=== PATIENT | female | born 1960 | race Caucasian/White ===

== ENCOUNTER 2018-03-15 14:08 | Outpatient (CLI) | payer BC ==
--- NOTE | 2018-03-16 11:13 | MMO ---
BILATERAL DIGITAL SCREENING MAMMOGRAMS: HISTORY: This 58-year-old female presents for digital screening mammography. COMPARISON: 08/12/08. This patient's mammogram is interpreted with the assistance of computer-aided detection. FINDINGS: Scattered areas of fibroglandular density are noted bilaterally. Small stable circumscribed mass in the outer lower subareolar region of the right breast. Stable typically benign calcifications. IMPRESSION: BI-RADS category 2, benign findings. Continued routine screening. BIRADS 2: Benign Finding(s) Routine annual screening mammography (for women over age 40) POS: [facility]
== END 2018-03-15 14:09 | disposition home or self-care (01) ==
LOC: SCSMAMMO 14:08
PROVIDERS: ATTEND Family Medicine
DX: Z12.31 Encounter for screening mammogram for malignant neoplasm of breast (principal)
CPT/HCPCS: 77067

== ENCOUNTER 2019-05-04 14:22 | Emergency (ER) | payer BC ==
[~2019-05-04 14:22] MED LIST: Iopamidol 370 76% 100 ML VIAL ONE
[2019-05-04 14:55] LABS: #Basophils 0.1 thou/uL (0.0-0.2); #Eosinphils 0.2 thou/uL (0.0-0.7); #Monocytes 0.8 thou/uL (0.11-0.59); #Neutrophils 5.5 thou/uL (1.40-6.50); %Basophils 0.9 % (0.0-1.0); %Eosinophils 2.2 % (0.0-10.0); %Lymphocytes 23.3 % (21.0-51.0); %Monocytes 9.7 % (0.0-10.0); %Neutrophils 63.9 % (42.0-75.0); Hemoglobin 11.8 g/dL (12.0-16.0); Mean Corpuscular HGB CONC 32.5 g/dL (32.0-36.0); Mean Corpuscular Hemoglobin 30.1 pg (27.0-31.0); Mean Corpuscular Volume 92.7 fL (78.0-98.0); Mean Platelet Volume 8.8 fL (7.4-10.4); Platelet Count 235 thou/uL (130-400); RBC Distribution Width 13.2 % (11.5-14.5); White Blood Cell (WBC) Count 8.5 thou/uL (4.8-10.8)
[2019-05-04 15:11] LABS: ALT (SGPT) 27 U/L (8-55); AST (SGOT) 20 U/L (5-34); Albumin 4.4 g/dL (3.4-4.8); Alkaline Phosphatase 83 U/L (40-150); Anion Gap 13 mmol/L (10-20); BUN (Urea Nitrogen) 19 mg/dL (9.8-20.1); Bilirubin, Total 0.3 mg/dL (0.2-1.2); Calc. Creatinine Clearance 0 mL/min (70-130); Calcium 9.6 mg/dL (7.8-10.44); Carbon Dioxide 25 mmol/L (23-31); Chloride 106 mmol/L (98-107); Estimated GFR-MDRD 74; Globulin 3.2 g/dL (2.4-3.5); Glucose 91 mg/dL (80-115); Lipase 15 U/L (8-78); Potassium 3.6 mmol/L (3.5-5.1); Protein, Total 7.6 g/dL (6.0-8.3); Sodium 140 mmol/L (136-145)
--- NOTE | 2019-05-04 15:16 | RAD ---
2 views chest: 05/04/2019 COMPARISON: None HISTORY: Shortness of breath FINDINGS: There is atherosclerotic calcification of the aortic arch. There is no pneumothorax or pleu ral fluid and no focal consolidation or alveolar edema. Heart and mediastinal contours appear grossly unremarkable. Clips in right upper quadrant suggest prior cholecystectomy. IMPRESSION: No acute findings.
[2019-05-04 15:21] LABS: Bilirubin Negative (Negative); Blood, Urine Trace (Negative); Clarity Clear (Clear); Glucose, Urine (Dipstick) Negative (Negative); Leukocyte Negative (Negative); Nitrite Negative (Negative); Protein, Urine (Dipstick) Negative (Neg-Trace); Urobilinogen 0.2 mg/dL (Less than 2)
[2019-05-04 15:27] LABS: Bacteria/HPF None Seen HPF (None Seen); WBC/HPF 0-3 HPF (0-3)
--- NOTE | 2019-05-04 16:43 | CT ---
CTA of the chest and abdomen utilizing an aortic dissection protocol and 3-D reformatted imaging INDICATION: Chest and back pain COMPARISON: None FINDINGS: Aorta: No acute aortic stenosis, occlusion or aneurysmal formation demonstrated. There is mild scatte red vascular calcification involving the aorta. Central pulmonary artery: No central pulmonary embolus demonstrated. Additional thorax findings: There is scattered emphysema. No confluent airspace opacity or pneumothor ax is demonstrated. Additional abdominal findings: The gallbladder is surgically absent. There is fatty infiltration of t he liver. There are scattered diverticula involving the colon. There is mild narrowing involving the proximal right renal artery. The celiac, SMA, left renal artery and ESTUARDO are patent. Osseous structures: No acute osseous abnormality. IMPRESSION: 1. No appreciable aortic stenosis, occlusion or aneurysmal formation demonstrated. 2. Mild narrowing of the proximal right renal artery 3. Other findings as above
== END 2019-05-04 17:19 | disposition left against medical advice (07) ==
LOC: SCSER 14:22
DX: R07.89 Other chest pain (principal); R06.00 Dyspnea, unspecified; M54.9 Dorsalgia, unspecified; R60.0 Localized edema; E03.9 Hypothyroidism, unspecified; E78.5 Hyperlipidemia, unspecified; E78.00 Pure hypercholesterolemia, unspecified; I10 Essential (primary) hypertension
CPT/HCPCS: 71046; 71275; 80053; 81003; 81015; 83690; 83880; 84484; 85025; 93005; Q9967

== ENCOUNTER 2019-07-25 14:35 | Outpatient (CLI) | payer BC ==
--- NOTE | 2019-07-25 15:17 | ULT ---
Thyroid ultrasound: 07/25/2019 COMPARISON: None HISTORY: Evaluate thyroid nodule TECHNIQUE: Multiplanar grayscale sonographic imaging of the thyroid gland obtained. FINDINGS: Thyroid isthmus measures 3 mm in AP dimension. Right lobe measures 3.9 x 1.4 x 1.2 cm and left lobe measures 4.4 x 1.5 x 1.4 cm. There is no nodule in the region of the thyroid isthmus or within right lobe. There are 3 round solid lesions within the midportion of the left lobe of the thyroid gland. No discr ete calcification is seen within any of these nodules. These nodules measure 1.0 x 0.7 x 0.8 cm, 1.2 x 1.1 x 0.9 cm, and 0.9 x 0.8 x 0.9 cm. IMPRESSION:TI-Rads category 4-moderately suspicious. Given relatively small size of these nodules, fi ne-needle aspiration is not recommended at this point. However, given nodules measuring greater than 1 cm, follow-up thyroid ultrasound in 6 months is advised.
== END 2019-07-25 14:36 | disposition home or self-care (01) ==
LOC: BICULT 14:35
PROVIDERS: ATTEND Internal Medicine Endocrinology, Diabetes & Metabolism
DX: E04.2 Nontoxic multinodular goiter (principal)
CPT/HCPCS: 76536

== ENCOUNTER 2019-11-08 16:08 | Outpatient (CLI) | payer BC ==
--- NOTE | 2019-11-08 16:30 | RAD ---
PA AND LATERAL VIEWS OF THE CHEST: 11/08/19 HISTORY: Tobacco abuse. COMPARISON: 05/04/19. The heart size is normal. The aorta is tortuous. The lungs are well expanded without focal areas of consolidation, pneumothoraces, or pleural effusions. There are degenerative changes in the spine. IMPRESSION: Stable exam. No acute process. POS: [facility]
== END 2019-11-08 16:09 | disposition home or self-care (01) ==
LOC: BICRAD 16:08
PROVIDERS: ATTEND Family Medicine
DX: Z72.0 Tobacco use (principal)
CPT/HCPCS: 71046

== ENCOUNTER 2020-01-14 14:10 | Outpatient (CLI) | payer BC ==
--- NOTE | 2020-01-14 14:52 | ULT ---
EXAM: US Thyroid STANDARD PROVIDED CLINICAL HISTORY: Thyroid nodule. COMPARISON: 07/25/2019 FINDINGS: The right lobe of thyroid gland measures 4 cm x 1.2 cm x 1.5 cm with the left lobe measuring 4.2 cm x 1.3 cm x 1.8 cm. The thyroid isthmus measures 0.4 cm in AP dimensions. Again noted are 3 separate round solid nodules in the midportion and inferior pole left lobe of the t hyroid gland. Again no calcification is seen within disease nodules. Largest slightly heterogeneous nodule in the midportion left lobe of thyroid gland measures 1.6 cm x 1.5 cm x 1 cm with previous quintin surement of 1.2 cm x 1.1 cm x 0.9 cm. The 2 additional closely adjacent echogenic solid nodules measure 1.1 cm and 1 cm without significant change in size compared to prior exam. A new anechoic nodule is now seen in the midportion left lobe of thyroid gland which measures 0.5 cm with punctate echogenic focus which likely represents a tiny calcification. IMPRESSION: TI RADS level 4-moderately suspicious nodule midportion left lobe of the thyroid gland. This nodule h as enlarged when compared to the prior exam with a measurement of 1.6 cm on the current exam. Based on nodule characteristics and size, fine-needle aspiration is recommended.
== END 2020-01-14 14:11 | disposition home or self-care (01) ==
LOC: BICULT 14:10
PROVIDERS: ATTEND Internal Medicine Endocrinology, Diabetes & Metabolism
DX: E04.2 Nontoxic multinodular goiter (principal)
CPT/HCPCS: 76536

== ENCOUNTER 2020-02-17 15:19 | Emergency (ER) | payer BC, OTHER ==
[2020-02-17 15:50] LABS: #Lymphocytes 0.7 thou/uL (1.20-3.40); #Monocytes 0.5 thou/uL (0.11-0.59); #Neutrophils 3.4 thou/uL (1.40-6.50); %Basophils 0.6 % (0.0-1.0); %Eosinophils 0.5 % (0.0-10.0); %Lymphocytes 15.6 % (21.0-51.0); %Monocytes 10.5 % (0.0-10.0); %Neutrophils 72.8 % (42.0-75.0); Hemoglobin 13.2 g/dL (12.0-16.0); Mean Corpuscular HGB CONC 32.7 g/dL (32.0-36.0); Mean Corpuscular Volume 91.7 fL (78.0-98.0); Mean Platelet Volume 8.5 fL (7.4-10.4); Platelet Count 212 thou/uL (130-400); RBC Distribution Width 12.4 % (11.5-14.5); White Blood Cell (WBC) Count 4.6 thou/uL (4.8-10.8)
--- NOTE | 2020-02-17 16:00 | RAD ---
Exam: Chest one view HISTORY:Syncope. Comparison: 11/08/2019 FINDINGS: Cardiac silhouette: Normal Aorta: Atherosclerosis Pulmonary vessels: Normal Costophrenic angles: Clear LUNGS: No masses or consolidation. Pneumothorax: None Osseous abnormalities: None IMPRESSION: No acute cardiopulmonary process. Atherosclerosis.
[2020-02-17 16:12] LABS: ALT (SGPT) 28 U/L (8-55); AST (SGOT) 26 U/L (5-34); Alkaline Phosphatase 96 U/L (40-110); Anion Gap 17 mmol/L (10-20); BUN (Urea Nitrogen) 26 mg/dL (9.8-20.1); Bilirubin, Total 0.3 mg/dL (0.2-1.2); Calc. Creatinine Clearance 0 mL/min (70-130); Calcium 8.2 mg/dL (7.8-10.44); Carbon Dioxide 21 mmol/L (23-31); Chloride 101 mmol/L (98-107); Estimated GFR-MDRD 42; Glucose 94 mg/dL (80-115); Potassium 3.8 mmol/L (3.5-5.1); Sodium 135 mmol/L (136-145)
[2020-02-17] MEDS ORDERED: Promethazine HCl 25 MG/ML VIAL ONE (16:30)
[2020-02-17 18:35] LABS: Bilirubin Negative (Negative); Blood, Urine Negative (Negative); Clarity Clear (Clear); Glucose, Urine (Dipstick) Normal (Negative); Leukocyte Negative Leu/uL (Negative); Nitrite Negative (Negative); Protein, Urine (Dipstick) Negative (Neg-Trace); Urobilinogen Normal mg/dL (Less than 2)
--- NOTE | 2020-02-23 11:01 | EKG ---
Test Reason : SYNCOPE Blood Pressure : / mmHG Vent. Rate : 065 BPM Atrial Rate : 065 BPM P-R Int : 146 ms QRS Dur : 084 ms QT Int : 428 ms P-R-T Axes : 039 028 022 degrees QTc Int : 445 ms Normal sinus rhythm Normal ECG Confirmed by COTY FENG DO ([id number]), film editor LEWIS ALBA ([id number]) on 02/23/2020 11:01:20 AM Referred By: Confirmed By:COTY FENG DO
== END 2020-02-17 19:00 | disposition home or self-care (01) ==
LOC: ERS 15:19
DX: U07.1 COVID-19 (principal); R55 Syncope and collapse; E03.9 Hypothyroidism, unspecified; E78.5 Hyperlipidemia, unspecified; E78.00 Pure hypercholesterolemia, unspecified; I10 Essential (primary) hypertension; Z79.899 Other long term (current) drug therapy
CPT/HCPCS: 71045; 80053; 81003; 84484; 85025; 93005; 96365; J2550

== ENCOUNTER 2020-02-21 15:00 | Inpatient (IN) | payer BC, OTHER ==
[2020-02-21 17:14] LABS: #Monocytes 0.5 thou/uL (0.11-0.59); #Neutrophils 2.9 thou/uL (1.40-6.50); %Basophils 0.7 % (0.0-1.0); %Eosinophils 0.4 % (0.0-10.0); %Lymphocytes 21.5 % (21.0-51.0); %Monocytes 12.1 % (0.0-10.0); %Neutrophils 65.2 % (42.0-75.0); Hemoglobin 13.3 g/dL (12.0-16.0); Mean Corpuscular HGB CONC 32.7 g/dL (32.0-36.0); Mean Corpuscular Volume 91.6 fL (78.0-98.0); Mean Platelet Volume 8.5 fL (7.4-10.4); Platelet Count 327 thou/uL (130-400); RBC Distribution Width 12.6 % (11.5-14.5); Red Blood Cell (RBC) Count 4.43 mill/uL (4.20-5.40); White Blood Cell (WBC) Count 4.4 thou/uL (4.8-10.8)
--- NOTE | 2020-02-21 17:29 | RAD ---
EXAM: CHEST ONE VIEW HISTORY: Chest pain. Positive Covid. COMPARISON: 02/19/2020 FINDINGS: The cardiac silhouette and pulmonary vasculature is within normal limits. Mild linear and slight patc hy densities are seen at the left lung base and in the upper lung zones which was not present on prior exam. No consolidation or pleural fluid is seen. No other interval change. IMPRESSION: Nonspecific slight linear and patchy densities in the upper lung zones and left lung base. This findi ngs can be seen with viral pneumonitis.
[2020-02-21 17:36] LABS: ALT (SGPT) 24 U/L (8-55); AST (SGOT) 30 U/L (5-34); Albumin 3.7 g/dL (3.4-4.8); Alkaline Phosphatase 85 U/L (40-110); Anion Gap 15 mmol/L (10-20); BUN (Urea Nitrogen) 11 mg/dL (9.8-20.1); Bilirubin, Total 0.5 mg/dL (0.2-1.2); Calc. Creatinine Clearance 0 mL/min (70-130); Calcium 8.9 mg/dL (7.8-10.44); Carbon Dioxide 23 mmol/L (23-31); Chloride 104 mmol/L (98-107); Estimated GFR-MDRD 66; Globulin 3.6 g/dL (2.4-3.5); Glucose 88 mg/dL (80-115); Potassium 3.9 mmol/L (3.5-5.1); Protein, Total 7.3 g/dL (6.0-8.3); Sodium 138 mmol/L (136-145)
[2020-02-21 18:03] LABS: Bacteria/HPF 1+ HPF (None Seen); Bilirubin Negative (Negative); Blood, Urine Trace (Negative); Clarity Clear (Clear); Glucose, Urine (Dipstick) Normal (Negative); Leukocyte 75 Leu/uL (Negative); Nitrite Negative (Negative); Protein, Urine (Dipstick) 30 mg/dL (Neg-Trace); RBC/HPF 0-3 HPF (0-3); Urobilinogen Normal mg/dL (Less than 2)
[2020-02-21] MEDS ORDERED: Dexamethasone 10 MG/ML VIAL ONE (18:36)
--- NOTE | 2020-02-21 20:07 | PDOC.HHP ---
Hospitalist HPI - History of Present Illness COVID19 History of Present Illness: Patient with PMH of HLD and HTN and known diagnosis of COVID19 about 2 weeks ago presents to ED for evaluation of worsening malaise, fatigue/weakness, ongoing nausea, vomiting, diarrhea, poor oral intake and several episodes of syncope/near syncope. Tells me that her breathing and cough appear stable. On exam patient appears in no significant distress but does appear weak and dehydrated. Although she does not appear to be in any distress she is currently requiring 2L O2 via NC. Initial ED evaluation reveals chest x-ray with bilateral infiltrates suggestive of viral etiology. Blood work without leukocytosis, normal renal function, normal lactic acid. Hospitalist ROS - Review of Systems Constitutional: reports: weakness, malaise. denies: fever, chills Eyes: denies: pain, conjunctivae inflammation, redness ENT: denies: ear pain, nose pain, nose congestion, mouth swelling, throat pain Respiratory: reports: cough, dry, shortness of breath, SOB with excertion Cardiovascular: denies: chest pain, palpitations, orthopnea, paroxysmal noc. dyspnea Gastrointestinal: reports: nausea, vomiting, diarrhea Genitourinary: denies: dysuria, frequency, incontinence, hematuria Musculoskeletal: denies: neck pain, shoulder pain Neurological: reports: weakness. denies: numbness, incoordination, change in speech - Exam General Appearance: NAD, awake alert Eye: PERRL, anicteric sclera ENT: normocephalic atraumatic, no oropharyngeal lesions Neck: supple, symmetric, no JVD Heart: RRR, no murmur, no gallops Respiratory: rhonchi Respiratory - other findings: faint bilateral rhonchi Gastrointestinal: soft, non-tender, non-distended Extremities: no cyanosis, no clubbing, no edema Skin: normal turgor Neurological: cranial nerve grossly intact Musculoskeletal: normal tone, normal strength, no muscle wasting Psychiatric: normal affect, normal behavior, A&O x 3, oriented to person Hospitalist Results - Labs Result Diagrams: 02/21/20 16:15 02/21/20 16:15 Lab results: WBC 4.4 thou/uL (4.8-10.8) L 02/21/20 16:15 Hgb 13.3 g/dL (12.0-16.0) 02/21/20 16:15 Hct 40.6 % (36.0-47.0) 02/21/20 16:15 MCV 91.6 fL (78.0-98.0) 02/21/20 16:15 Plt Count 327 thou/uL (130-400) 02/21/20 16:15 Neutrophils % 65.2 % (42.0-75.0) 02/21/20 16:15 Sodium 138 mmol/L (136-145) 02/21/20 16:15 Potassium 3.9 mmol/L (3.5-5.1) 02/21/20 16:15 Chloride 104 mmol/L (98-107) 02/21/20 16:15 Carbon Dioxide 23 mmol/L (23-31) 02/21/20 16:15 BUN 11 mg/dL (9.8-20.1) 02/21/20 16:15 Creatinine 0.87 mg/dL (0.6-1.1) 02/21/20 16:15 Glucose 88 mg/dL (80-115) 02/21/20 16:15 Lactic Acid 1.1 mmol/L (0.5-2.2) 02/21/20 17:30 Calcium 8.9 mg/dL (7.8-10.44) 02/21/20 16:15 Total Bilirubin 0.5 mg/dL (0.2-1.2) 02/21/20 16:15 AST 30 U/L (5-34) 02/21/20 16:15 ALT 24 U/L (8-55) 02/21/20 16:15 Alkaline Phosphatase 85 U/L (40-110) 02/21/20 16:15 Serum Total Protein 7.3 g/dL (6.0-8.3) 02/21/20 16:15 Albumin 3.7 g/dL (3.4-4.8) 02/21/20 16:15 Urine Ketones Negative mg/dL (Negative) 02/21/20 17:30 Urine Blood Trace (Negative) A 02/21/20 17:30 Urine Nitrite Negative (Negative) 02/21/20 17:30 Ur Leukocyte Esterase 75 Angelic/uL (Negative) A 02/21/20 17:30 Urine RBC 0-3 HPF (0-3) 02/21/20 17:30 Urine WBC 4-6 HPF (0-3) A 02/21/20 17:30 Ur Squamous Epith Cells 4-6 HPF (0-3) A 02/21/20 17:30 Urine Bacteria 1+ HPF (None Seen) A 02/21/20 17:30 - Radiology Interpretation Chest x-ray Status: image reviewed by me (Bilateral infiltrates suggestive of viral pneumonia) Hospitalist H&P A/P - Plan Plan: Problem List 1. COVID19 Pneumonia 2. Acute hypoxic respiratory failure 3. Mild dehydration 4. Pronounced weakness 5. Vasovagal syncope 6. History of hypertension 7. History of hyperlipidemia Assessment/Plan 1. COVID19 Pneumonia - admit patient for further management - currently requiring only 2L O2 NC - titrate oxygen as allowed by O2 sats - will hold off on abx and steroids for now - continue with IVF hydration - check baseline labs procal, ferritin, LDH, CRP 2. Acute hypoxic respiratory failure - in setting of COVID19 pneumonia/pneumonitis - titrate oxygen as able 3. Nausea, vomiting, diarrhea - in setting of COVID19 infection - IV Zofran and Imodium PRN - continue with IVFs 3. Mild dehydration - in setting of NVD, poor oral intake - IV Zofran and Imodium PRN - continue with IVFs 4. Pronounced weakness - in setting of COVID19 & dehydration - PT/OT/CM evaluation for discharge disposition - rest of care per above plan 5. Vasovagal syncope - suspecting vasovagal vs orthostatic events - monitor telemetry - continue with IVF resuscitation - monitor clinical progression 6. History of hypertension - hold antihypertensive for now - restart in 24 hrs after gentle volume resuscitation 7. History of hyperlipidemia - continue with statin DVT PPX: Lovenox
[2020-02-21] MEDS ORDERED: Ondansetron PF 4 MG/2 ML Vial IVP PRN (20:24)
[2020-02-21] MEDS ORDERED: Loperamide HCl 2 MG CAP PO PRN ×2 (20:24)
[2020-02-21] MEDS ORDERED: Benzonatate 100 MG CAP PO PRN (20:29)
[2020-02-21 23:00] VITALS: BMI 32.7
[2020-02-21] MEDS: Liothyronine Sodium 5 MCG TAB PO SCH (23:23)
[2020-02-21] MEDS: traMADol HCl 50 MG TAB PO PRN (23:25)
[2020-02-21] MEDS: Sodium Chloride 0.9% 1,000 ML IV SCH (23:32)
[2020-02-22 05:08] LABS: #Lymphocytes 0.6 thou/uL (1.20-3.40); #Monocytes 0.1 thou/uL (0.11-0.59); #Neutrophils 2.2 thou/uL (1.40-6.50); %Eosinophils 0.1 % (0.0-10.0); %Lymphocytes 21.4 % (21.0-51.0); %Monocytes 3.7 % (0.0-10.0); %Neutrophils 74.7 % (42.0-75.0); Hemoglobin 12.6 g/dL (12.0-16.0); Mean Corpuscular HGB CONC 33.2 g/dL (32.0-36.0); Mean Corpuscular Volume 90.2 fL (78.0-98.0); Mean Platelet Volume 8.1 fL (7.4-10.4); Platelet Count 341 thou/uL (130-400); RBC Distribution Width 12.3 % (11.5-14.5); White Blood Cell (WBC) Count 2.9 thou/uL (4.8-10.8)
[2020-02-22 05:33] LABS: Anion Gap 14 mmol/L (10-20); BUN (Urea Nitrogen) 12 mg/dL (9.8-20.1); Calc. Creatinine Clearance 101 mL/min (70-130); Calcium 8.4 mg/dL (7.8-10.44); Carbon Dioxide 22 mmol/L (23-31); Chloride 109 mmol/L (98-107); Estimated GFR-MDRD 72; Glucose 134 mg/dL (80-115); Potassium 3.8 mmol/L (3.5-5.1); Sodium 141 mmol/L (136-145)
[2020-02-22] MEDS: Enoxaparin Sodium 40 MG/0.4 ML SYRINGE SC SCH (08:02)
[2020-02-22] MEDS: Liothyronine Sodium 5 MCG TAB PO SCH ×2 (08:02→20:59)
[2020-02-22] MEDS: traMADol HCl 50 MG TAB PO PRN ×2 (08:03→16:25)
[2020-02-22] MEDS: Sodium Chloride 0.9% 1,000 ML IV SCH (10:44)
[2020-02-22] MEDS ORDERED: Dexamethasone 4 MG TAB PO SCH (10:45)
[2020-02-22] MEDS ORDERED: Losartan 25 MG TAB PO SCH (10:45)
[2020-02-22] MEDS ORDERED: Amlodipine 5 MG TAB PO SCH (10:45)
--- NOTE | 2020-02-22 18:18 | PDOC.HOSPP ---
- Subjective Encounter Date: 02/22/20 - Objective Vital Signs & Weight: Vital Signs (12 hours) Temp Pulse Pulse Pulse Resp BP BP 02/22/20 16:45 97.6 F 60 18 02/22/20 12:04 62 59 L 137/69 147/67 H 02/22/20 12:03 62 59 L 137/65 147/67 H 02/22/20 11:28 97.5 F L 59 L 20 02/22/20 08:00 97.8 F 61 20 BP Pulse Ox Pulse Ox Pulse Ox 02/22/20 16:45 137/65 93 L 02/22/20 12:04 02/22/20 12:03 93 L 92 L 02/22/20 11:28 154/72 H 94 L 02/22/20 08:00 177/79 H 92 L Weight Admit Weight 196 lb 12.8 oz Weight 196 lb 12.8 oz I&O: 02/21/20 02/22/20 02/23/20 06:59 06:59 06:59 Intake Total 1243 920 Output Total 600 Balance 1243 320 Result Diagrams: 02/22/20 04:57 02/22/20 04:57 Hospitalist ROS - Medication Medications: Active Medications Generic Name Dose Route Start Last Admin Trade Name Freq PRN Reason Stop Dose Admin Enoxaparin Sodium 40 mg 02/22/20 09:00 02/22/20 08:02 Lovenox SC 40 mg 0900 SAHRA Administration Liothyronine Sodium 15 mcg 02/21/20 21:00 02/22/20 08:02 Cytomel PO 15 mcg BID SAHRA Administration Tramadol HCl 50 mg 02/21/20 20:28 02/22/20 16:25 Ultram PO 50 mg Q6H PRN Administration Moderate Pain (4-6) - Exam General Appearance: awake alert ENT: normocephalic atraumatic Neck: supple Heart: RRR Respiratory: normal chest expansion, no tachypnea Gastrointestinal: soft Neurological: cranial nerve grossly intact, no focal deficits Hosp A/P (1) COVID-19 Code(s): U07.1 - COVID-19 Status: Acute (2) Acute respiratory failure with hypoxemia Code(s): J96.01 - ACUTE RESPIRATORY FAILURE WITH HYPOXIA Status: Acute - Plan Supplemental oxygen as needed to achieve O2 sats of 92%. Start dexamethasone 6 mg orally daily for a 10-day regimen. Once hypoxia resolves, patient will be discharged home.
[2020-02-22] MEDS: Simvastatin 40 MG TAB PO SCH (20:59)
[2020-02-23] MEDS: traMADol HCl 50 MG TAB PO PRN ×4 (01:20→21:52)
[2020-02-23] MEDS: Losartan 25 MG TAB PO SCH (08:39)
[2020-02-23] MEDS: Enoxaparin Sodium 40 MG/0.4 ML SYRINGE SC SCH (08:40)
[2020-02-23] MEDS: Amlodipine 5 MG TAB PO SCH (08:40)
[2020-02-23] MEDS: Dexamethasone 4 MG TAB PO SCH (08:40)
[2020-02-23] MEDS: Liothyronine Sodium 5 MCG TAB PO SCH ×2 (08:47→20:00)
[2020-02-23] MEDS: Acetaminophen 325 MG TAB PO PRN ×2 (15:18→21:53)
[2020-02-23] MEDS: Simvastatin 40 MG TAB PO SCH (20:00)
--- NOTE | 2020-02-23 20:50 | PDOC.HOSPP ---
- Subjective Encounter Date: 02/23/20 - Objective Vital Signs & Weight: Vital Signs (12 hours) Temp Pulse Resp BP BP BP BP 02/23/20 20:05 97.7 F 68 18 149/72 H 02/23/20 15:30 96.8 F L 62 20 128/60 02/23/20 14:49 124/74 125/64 159/70 H 02/23/20 12:00 96.5 F L 78 18 129/60 02/23/20 09:00 96.5 F L 60 18 161/72 H Pulse Ox Pulse Ox Pulse Ox Pulse Ox 02/23/20 20:05 95 02/23/20 15:30 94 L 02/23/20 14:49 90 L 94 L 91 L 02/23/20 12:00 93 L 02/23/20 09:00 94 L Weight Admit Weight 196 lb 12.8 oz Weight 196 lb 12.8 oz I&O: 02/22/20 02/23/20 02/24/20 06:59 06:59 06:59 Intake Total 1243 1980 Output Total 1100 200 Balance 1243 880 -200 Result Diagrams: 02/22/20 04:57 02/22/20 04:57 Hospitalist ROS - Medication Medications: Active Medications Generic Name Dose Route Start Last Admin Trade Name Freq PRN Reason Stop Dose Admin Acetaminophen 650 mg 02/21/20 20:24 02/23/20 15:18 Tylenol PO 650 mg Q4H PRN Administration Headache/Fever/Mild Pain (1-3) Amlodipine Besylate 5 mg 02/23/20 09:00 02/23/20 08:40 Norvasc PO 5 mg DAILY SAHRA Administration Dexamethasone 6 mg 02/23/20 08:00 02/23/20 08:40 Decadron PO 6 mg QAM-WM SAHRA Administration Enoxaparin Sodium 40 mg 02/22/20 09:00 02/23/20 08:40 Lovenox SC 40 mg 0900 SAHRA Administration Levofloxacin 750 mg/ Device 150 mls @ 100 mls/hr 02/23/20 17:00 02/23/20 17: 55 IVPB 150 mls Q24HR SAHRA Administration Liothyronine Sodium 15 mcg 02/21/20 21:00 02/23/20 20:00 Cytomel PO 15 mcg BID SAHRA Administration Losartan Potassium 50 mg 02/23/20 09:00 06/20/20 08:39 Cozaar PO 50 mg DAILY SAHRA Administration Simvastatin 40 mg 02/22/20 21:00 02/23/20 20:00 Zocor PO 40 mg QPM SAHRA Administration Tramadol HCl 50 mg 02/21/20 20:28 02/23/20 15:18 Ultram PO 50 mg Q6H PRN Administration Moderate Pain (4-6) - Exam General Appearance: awake alert ENT: normocephalic atraumatic Neck: supple Respiratory: normal chest expansion, no tachypnea Gastrointestinal: soft, non-tender, non-distended, normal bowel sounds Neurological: cranial nerve grossly intact, no focal deficits Hosp A/P (1) COVID-19 Code(s): U07.1 - COVID-19 Status: Acute (2) Acute respiratory failure with hypoxemia Code(s): J96.01 - ACUTE RESPIRATORY FAILURE WITH HYPOXIA Status: Acute (3) UTI (urinary tract infection) Status: Acute (4) Gram-neg septicemia Status: Acute - Plan Supplemental oxygen as needed to achieve O2 sats of 92%. Dexamethasone 6 mg orally daily. Day 10/15. UTI with G-tive. Lavofloxacin started. Once hypoxia resolves, patient will be discharged home.
--- NOTE | 2020-02-23 20:54 | PDOC.HOSPP ---
- Subjective Encounter Date: 02/23/20 - Objective Vital Signs & Weight: Vital Signs (12 hours) Temp Pulse Resp BP BP BP BP 02/23/20 20:05 97.7 F 68 18 149/72 H 02/23/20 15:30 96.8 F L 62 20 128/60 02/23/20 14:49 124/74 125/64 159/70 H 02/23/20 12:00 96.5 F L 78 18 129/60 02/23/20 09:00 96.5 F L 60 18 161/72 H Pulse Ox Pulse Ox Pulse Ox Pulse Ox 02/23/20 20:05 95 02/23/20 15:30 94 L 02/23/20 14:49 90 L 94 L 91 L 02/23/20 12:00 93 L 02/23/20 09:00 94 L Weight Admit Weight 196 lb 12.8 oz Weight 196 lb 12.8 oz I&O: 02/22/20 02/23/20 02/24/20 06:59 06:59 06:59 Intake Total 1243 1980 Output Total 1100 200 Balance 1243 880 -200 Result Diagrams: 02/22/20 04:57 02/22/20 04:57 Hospitalist ROS - Medication Medications: Active Medications Generic Name Dose Route Start Last Admin Trade Name Freq PRN Reason Stop Dose Admin Acetaminophen 650 mg 02/21/20 20:24 02/23/20 15:18 Tylenol PO 650 mg Q4H PRN Administration Headache/Fever/Mild Pain (1-3) Amlodipine Besylate 5 mg 02/23/20 09:00 02/23/20 08:40 Norvasc PO 5 mg DAILY SAHRA Administration Dexamethasone 6 mg 02/23/20 08:00 02/23/20 08:40 Decadron PO 6 mg QAM-WM SAHRA Administration Enoxaparin Sodium 40 mg 02/22/20 09:00 02/23/20 08:40 Lovenox SC 40 mg 0900 SAHRA Administration Levofloxacin 750 mg/ Device 150 mls @ 100 mls/hr 02/23/20 17:00 02/23/20 17: 55 IVPB 150 mls Q24HR SAHRA Administration Liothyronine Sodium 15 mcg 02/21/20 21:00 02/23/20 20:00 Cytomel PO 15 mcg BID SAHRA Administration Losartan Potassium 50 mg 02/23/20 09:00 06/20/20 08:39 Cozaar PO 50 mg DAILY SAHRA Administration Simvastatin 40 mg 02/22/20 21:00 02/23/20 20:00 Zocor PO 40 mg QPM SAHRA Administration Tramadol HCl 50 mg 02/21/20 20:28 02/23/20 15:18 Ultram PO 50 mg Q6H PRN Administration Moderate Pain (4-6) Hosp A/P (1) COVID-19 Code(s): U07.1 - COVID-19 Status: Acute (2) Acute respiratory failure with hypoxemia Code(s): J96.01 - ACUTE RESPIRATORY FAILURE WITH HYPOXIA Status: Acute (3) UTI (urinary tract infection) Status: Acute (4) Gram-neg septicemia Status: Acute - Plan Supplemental oxygen as needed to achieve O2 sats of 92%. Dexamethasone 6 mg orally daily. Day 10/15. UTI with G-tive. Lavofloxacin started. Once hypoxia resolves, patient will be discharged home.
[2020-02-24] MEDS: Acetaminophen 325 MG TAB PO PRN ×4 (03:47→23:56)
[2020-02-24] MEDS: traMADol HCl 50 MG TAB PO PRN ×4 (03:47→23:55)
[2020-02-24] MEDS: Amlodipine 5 MG TAB PO SCH (09:05)
[2020-02-24] MEDS: Dexamethasone 4 MG TAB PO SCH (09:05)
[2020-02-24] MEDS: Losartan 25 MG TAB PO SCH (09:05)
[2020-02-24] MEDS: Liothyronine Sodium 5 MCG TAB PO SCH ×2 (09:06→20:43)
[2020-02-24] MEDS: Enoxaparin Sodium 40 MG/0.4 ML SYRINGE SC SCH (09:06)
--- NOTE | 2020-02-24 19:13 | PDOC.HOSPP ---
- Subjective Encounter Date: 02/24/20 Subjective: She remains hypoxic and complains of shortness of breath. - Objective Vital Signs & Weight: Vital Signs (12 hours) Temp Pulse Resp BP BP Pulse Ox 02/24/20 16:00 98.0 F 59 L 20 154/77 H 95 02/24/20 12:00 97.9 F 59 L 18 151/72 H 97 02/24/20 09:00 97.7 F 55 L 16 142/73 H 96 02/24/20 08:00 96 Weight Admit Weight 196 lb 12.8 oz Weight 196 lb 12.8 oz I&O: 02/23/20 02/24/20 02/25/20 06:59 06:59 06:59 Intake Total 1980 250 Output Total 1100 200 Balance 880 50 Result Diagrams: 02/22/20 04:57 02/22/20 04:57 Hospitalist ROS - Medication Medications: Active Medications Generic Name Dose Route Start Last Admin Trade Name Freq PRN Reason Stop Dose Admin Acetaminophen 650 mg 02/21/20 20:24 02/24/20 18:22 Tylenol PO 650 mg Q4H PRN Administration Headache/Fever/Mild Pain (1-3) Amlodipine Besylate 5 mg 02/23/20 09:00 02/24/20 09:05 Norvasc PO 5 mg DAILY SAHRA Administration Dexamethasone 6 mg 02/23/20 08:00 02/24/20 09:05 Decadron PO 6 mg QAM-WM SAHRA Administration Enoxaparin Sodium 40 mg 02/22/20 09:00 02/24/20 09:06 Lovenox SC 40 mg 0900 SAHRA Administration Levofloxacin 750 mg/ Device 150 mls @ 100 mls/hr 02/23/20 17:00 02/24/20 16: 36 IVPB 150 mls Q24HR SAHRA Administration Liothyronine Sodium 15 mcg 02/21/20 21:00 02/24/20 09:06 Cytomel PO 15 mcg BID SAHRA Administration Losartan Potassium 50 mg 02/23/20 09:00 02/24/20 09:05 Cozaar PO 50 mg DAILY SAHRA Administration Ondansetron HCl 4 mg 02/21/20 20:24 02/23/20 22:00 Zofran IVP 4 mg Q6H PRN Administration Nausea/Vomiting Simvastatin 40 mg 02/22/20 21:00 02/23/20 20:00 Zocor PO 40 mg QPM SAHRA Administration Tramadol HCl 50 mg 02/21/20 20:28 02/24/20 18:22 Ultram PO 50 mg Q6H PRN Administration Moderate Pain (4-6) - Exam General Appearance: awake alert ENT: normocephalic atraumatic Neck: supple Heart: RRR Respiratory: normal chest expansion, no tachypnea, rhonchi Gastrointestinal: soft, non-tender, non-distended, normal bowel sounds Neurological: cranial nerve grossly intact, no focal deficits Hosp A/P (1) COVID-19 Code(s): U07.1 - COVID-19 Status: Acute (2) Acute respiratory failure with hypoxemia Code(s): J96.01 - ACUTE RESPIRATORY FAILURE WITH HYPOXIA Status: Acute (3) UTI (urinary tract infection) Status: Acute (4) Gram-neg septicemia Status: Acute - Plan Supplemental oxygen as needed to achieve O2 sats of 92% or above. Dexamethasone 6 mg orally daily. Day 11/12. UTI with G-tive. Lavofloxacin day 2. Once hypoxia resolves, patient will be discharged home.
[2020-02-24] MEDS: Simvastatin 40 MG TAB PO SCH (20:43)
[2020-02-25] MEDS ORDERED: traMADol HCl 50 MG TAB PO SCH (01:45)
[2020-02-25] MEDS: Lidocaine 5% Patch TD SCH (01:54)
[2020-02-25 05:21] LABS: Anion Gap 12 mmol/L (10-20); BUN (Urea Nitrogen) 24 mg/dL (9.8-20.1); Calc. Creatinine Clearance 104 mL/min (70-130); Calcium 8.8 mg/dL (7.8-10.44); Carbon Dioxide 23 mmol/L (23-31); Chloride 108 mmol/L (98-107); Estimated GFR-MDRD 74; Glucose 109 mg/dL (80-115); Sodium 139 mmol/L (136-145)
--- NOTE | 2020-02-25 07:22 | PDOC.HOSPP ---
- Subjective Encounter Date: 02/25/20 Encounter Time: 11:00 Subjective: Patient with persistent cough and shortness of breath. No changes. Stable on 4L NC. - Objective Vital Signs & Weight: Vital Signs (12 hours) Temp Pulse Resp BP Pulse Ox 02/25/20 04:39 98.4 F 56 L 18 153/72 H 94 L 02/25/20 00:03 97.7 F 59 L 20 151/74 H 94 L 02/24/20 20:50 97.7 F 62 16 163/75 H 94 L Weight Admit Weight 196 lb 12.8 oz Weight 196 lb 12.8 oz I&O: 02/24/20 02/25/20 02/26/20 06:59 06:59 06:59 Intake Total 250 200 Output Total 200 Balance 50 200 Result Diagrams: 02/25/20 04:38 02/25/20 04:38 Hospitalist ROS - Review of Systems Constitutional: denies: fever, chills Respiratory: reports: cough, shortness of breath. denies: pleuritic pain Cardiovascular: denies: chest pain, palpitations Gastrointestinal: denies: nausea, vomiting, abdominal pain - Medication Medications: Active Medications Generic Name Dose Route Start Last Admin Trade Name Freq PRN Reason Stop Dose Admin Acetaminophen 650 mg 02/21/20 20:24 02/24/20 23:56 Tylenol PO 650 mg Q4H PRN Administration Headache/Fever/Mild Pain (1-3) Amlodipine Besylate 5 mg 02/23/20 09:00 02/24/20 09:05 Norvasc PO 5 mg DAILY SAHRA Administration Dexamethasone 6 mg 02/23/20 08:00 02/24/20 09:05 Decadron PO 6 mg QAM-WM SAHRA Administration Enoxaparin Sodium 40 mg 02/22/20 09:00 02/24/20 09:06 Lovenox SC 40 mg 0900 SAHRA Administration Levofloxacin 750 mg/ Device 150 mls @ 100 mls/hr 02/23/20 17:00 02/24/20 16: 36 IVPB 150 mls Q24HR SAHRA Administration Lidocaine 1 patch 02/25/20 02:00 02/25/20 01:54 Lidoderm 5% Patch TD 1 patch 0200 SAHRA Administration Liothyronine Sodium 15 mcg 02/21/20 21:00 06/21/20 20:43 Cytomel PO 15 mcg BID SAHRA Administration Losartan Potassium 50 mg 02/23/20 09:00 02/24/20 09:05 Cozaar PO 50 mg DAILY SAHRA Administration Ondansetron HCl 4 mg 02/21/20 20:24 02/23/20 22:00 Zofran IVP 4 mg Q6H PRN Administration Nausea/Vomiting Simvastatin 40 mg 02/22/20 21:00 02/24/20 20:43 Zocor PO 40 mg QPM SAHRA Administration Tramadol HCl 50 mg 02/21/20 20:28 02/24/20 23:55 Ultram PO 50 mg Q6H PRN Administration Moderate Pain (4-6) - Exam General Appearance: NAD, awake alert ENT: moist mucosa Heart: RRR, no murmur, no gallops, no rubs Respiratory - other findings: coarse breath sounds bilaterally, no increased WOB Gastrointestinal: soft, non-tender, non-distended, normal bowel sounds Neurological: no focal deficits Musculoskeletal: normal tone, normal strength Psychiatric: normal affect, normal behavior, A&O x 3 Hosp A/P (1) Acute respiratory failure with hypoxemia Code(s): J96.01 - ACUTE RESPIRATORY FAILURE WITH HYPOXIA Status: Acute (2) Pneumonia due to COVID-19 virus Code(s): U07.1 - COVID-19; J12.89 - OTHER VIRAL PNEUMONIA Status: Acute (3) Gram-neg septicemia Status: Acute (4) UTI (urinary tract infection) Status: Acute - Plan Supplemental oxygen as needed to achieve O2 sats of 92% or above. Dexamethasone 6 mg orally daily. Day 12/13. UTI with G-tive bacteremia 09/06. Levofloxacin day 3. Culture ID still pending. Once hypoxia resolves, patient will be discharged home.
[2020-02-25] MEDS: Dexamethasone 4 MG TAB PO SCH (08:41)
[2020-02-25] MEDS: Acetaminophen 325 MG TAB PO PRN (08:43)
[2020-02-25] MEDS: Amlodipine 5 MG TAB PO SCH (08:43)
[2020-02-25] MEDS: Losartan 25 MG TAB PO SCH (08:43)
[2020-02-25] MEDS: Liothyronine Sodium 5 MCG TAB PO SCH ×2 (08:43→20:07)
[2020-02-25] MEDS: Enoxaparin Sodium 40 MG/0.4 ML SYRINGE SC SCH (08:44)
[2020-02-25] MEDS: traMADol HCl 50 MG TAB PO PRN ×2 (08:45→17:19)
[2020-02-25 09:54] LABS: Band 1 % (5-11); Hemoglobin 12.1 g/dL (12.0-16.0); Lymphocytes 9 % (21-51); MDiff Complete? YES; Mean Corpuscular Hemoglobin 29.8 pg (27.0-31.0); Mean Corpuscular Volume 90.3 fL (78.0-98.0); Mean Platelet Volume 8.3 fL (7.4-10.4); Monocytes 7 % (0-10); Neutrophil 83 % (42-75); Platelet Count 425 thou/uL (130-400); Platelet Morphology Comment Appears Increased; RBC Distribution Width 12.5 % (11.5-14.5); Red Blood Cell (RBC) Count 4.05 mill/uL (4.20-5.40)
[2020-02-25] MEDS: Lidocaine Patch Removal 1 EACH TOP SCH (17:05)
[2020-02-25] MEDS: Simvastatin 40 MG TAB PO SCH (20:07)
[2020-02-26] MEDS: traMADol HCl 50 MG TAB PO PRN ×4 (00:05→19:31)
[2020-02-26] MEDS: Lidocaine 5% Patch TD SCH (02:02)
[2020-02-26 05:19] LABS: Band 3 % (5-11); Hemoglobin 12.4 g/dL (12.0-16.0); Lymphocytes 16 % (21-51); MDiff Complete? YES; Mean Corpuscular HGB CONC 33.1 g/dL (32.0-36.0); Mean Corpuscular Hemoglobin 30.1 pg (27.0-31.0); Mean Corpuscular Volume 90.9 fL (78.0-98.0); Mean Platelet Volume 8.1 fL (7.4-10.4); Monocytes 6 % (0-10); Neutrophil 75 % (42-75); Platelet Count 457 thou/uL (130-400); Platelet Morphology Comment Appears Increased; RBC Distribution Width 12.5 % (11.5-14.5); RBC Morphology Normal; Red Blood Cell (RBC) Count 4.13 mill/uL (4.20-5.40); White Blood Cell (WBC) Count 12.1 thou/uL (4.8-10.8)
[2020-02-26 05:24] LABS: Anion Gap 10 mmol/L (10-20); BUN (Urea Nitrogen) 20 mg/dL (9.8-20.1); Calc. Creatinine Clearance 114 mL/min (70-130); Calcium 8.7 mg/dL (7.8-10.44); Carbon Dioxide 25 mmol/L (23-31); Chloride 108 mmol/L (98-107); Estimated GFR-MDRD 82; Glucose 103 mg/dL (80-115); Potassium 4.1 mmol/L (3.5-5.1); Sodium 139 mmol/L (136-145)
--- NOTE | 2020-02-26 07:19 | PDOC.HOSPP ---
- Subjective Encounter Date: 02/26/20 Encounter Time: 10:30 Subjective: Patient with continued SOB with any movement, doing well when laying still, cough ok. No fever. - Objective Vital Signs & Weight: Vital Signs (12 hours) Temp Pulse Resp BP Pulse Ox 02/26/20 05:15 98.0 F 65 16 142/68 H 95 02/26/20 00:05 97.8 F 59 L 16 150/70 H 94 L 02/25/20 20:20 96 02/25/20 20:15 97.5 F L 60 18 170/78 H 96 Weight Admit Weight 196 lb 12.8 oz Weight 196 lb 12.8 oz I&O: 02/25/20 02/26/20 02/27/20 06:59 06:59 06:59 Intake Total 200 421 Balance 200 421 Result Diagrams: 02/26/20 04:43 02/26/20 04:43 Hospitalist ROS - Review of Systems Constitutional: denies: fever, chills Respiratory: reports: cough, shortness of breath, SOB with excertion Cardiovascular: denies: chest pain, palpitations Gastrointestinal: denies: nausea, vomiting, abdominal pain Genitourinary: denies: dysuria - Medication Medications: Active Medications Generic Name Dose Route Start Last Admin Trade Name Freq PRN Reason Stop Dose Admin Acetaminophen 650 mg 02/21/20 20:24 02/25/20 08:43 Tylenol PO 650 mg Q4H PRN Administration Headache/Fever/Mild Pain (1-3) Amlodipine Besylate 5 mg 02/23/20 09:00 02/25/20 08:43 Norvasc PO 5 mg DAILY SAHRA Administration Dexamethasone 6 mg 02/23/20 08:00 02/25/20 08:41 Decadron PO 6 mg QAM-WM SAHRA Administration Enoxaparin Sodium 40 mg 02/22/20 09:00 02/25/20 08:44 Lovenox SC 40 mg 0900 SAHRA Administration Levofloxacin 750 mg/ Device 150 mls @ 100 mls/hr 02/23/20 17:00 02/25/20 18: 26 IVPB 150 mls Q24HR SAHRA Administration Lidocaine 1 patch 02/25/20 02:00 02/26/20 02:02 Lidoderm 5% Patch TD 1 patch 0200 SAHRA Administration Liothyronine Sodium 15 mcg 02/21/20 21:00 02/25/20 20:07 Cytomel PO 15 mcg BID SAHRA Administration Losartan Potassium 50 mg 02/23/20 09:00 02/25/20 08:43 Cozaar PO 50 mg DAILY SAHRA Administration Miscellaneous Medication 1 each 02/25/20 14:00 02/25/20 17:05 Lidocaine Patch Removal TOP 1 each 1400 SAHRA Administration Ondansetron HCl 4 mg 02/21/20 20:24 02/23/20 22:00 Zofran IVP 4 mg Q6H PRN Administration Nausea/Vomiting Simvastatin 40 mg 02/22/20 21:00 02/25/20 20:07 Zocor PO 40 mg QPM SAHRA Administration Tramadol HCl 50 mg 02/21/20 20:28 02/26/20 06:44 Ultram PO 50 mg Q6H PRN Administration Moderate Pain (4-6) - Exam General Appearance: NAD, awake alert ENT: moist mucosa Heart: RRR, no murmur, no gallops, no rubs Respiratory: CTAB, no wheezes, no rales, no ronchi Gastrointestinal: soft, non-tender, non-distended, normal bowel sounds Psychiatric: normal affect, normal behavior, A&O x 3 Hosp A/P (1) Acute respiratory failure with hypoxemia Code(s): J96.01 - ACUTE RESPIRATORY FAILURE WITH HYPOXIA Status: Acute (2) Pneumonia due to COVID-19 virus Code(s): U07.1 - COVID-19; J12.89 - OTHER VIRAL PNEUMONIA Status: Acute (3) Gram-neg septicemia Status: Ruled-out (4) UTI (urinary tract infection) Status: Resolved - Plan Supplemental oxygen as needed to achieve O2 sats of 92% or above. Dexamethasone 6 mg orally daily. Day 01/12. UTI with G-tive bacteremia 1/2. Grew back Brevuni diminuta. Discussed with Dr. Ibrahim. Given the mild UA changes, the lack of clinical symptoms, cultures drawn in ER not after hospital stay, and the fact that only 1/2 cultures positive he believes this is likely a contaminent. Can d/c antibiotics. Once hypoxia resolves, patient will be discharged home.
[2020-02-26] MEDS: Liothyronine Sodium 5 MCG TAB PO SCH ×2 (08:23→20:41)
[2020-02-26] MEDS: Enoxaparin Sodium 40 MG/0.4 ML SYRINGE SC SCH (08:24)
[2020-02-26] MEDS: Dexamethasone 4 MG TAB PO SCH (08:24)
[2020-02-26] MEDS: Amlodipine 5 MG TAB PO SCH (08:26)
[2020-02-26] MEDS: Losartan 25 MG TAB PO SCH (08:26)
[2020-02-26] MEDS: Lidocaine Patch Removal 1 EACH TOP SCH (15:21)
[2020-02-26] MEDS: Acetaminophen 325 MG TAB PO PRN (17:01)
[2020-02-26] MEDS: Simvastatin 40 MG TAB PO SCH (19:31)
[2020-02-27] MEDS: Lidocaine 5% Patch TD SCH (01:56)
[2020-02-27] MEDS: traMADol HCl 50 MG TAB PO PRN ×4 (02:23→20:32)
[2020-02-27 06:57] LABS: Hemoglobin 12.2 g/dL (12.0-16.0); Mean Corpuscular HGB CONC 33.3 g/dL (32.0-36.0); Mean Corpuscular Hemoglobin 29.8 pg (27.0-31.0); Mean Corpuscular Volume 89.5 fL (78.0-98.0); Mean Platelet Volume 8.2 fL (7.4-10.4); Platelet Count 447 thou/uL (130-400); RBC Distribution Width 12.6 % (11.5-14.5); White Blood Cell (WBC) Count 15.7 thou/uL (4.8-10.8)
[2020-02-27 07:16] LABS: Anion Gap 10 mmol/L (10-20); BUN (Urea Nitrogen) 25 mg/dL (9.8-20.1); Calc. Creatinine Clearance 108 mL/min (70-130); Calcium 8.8 mg/dL (7.8-10.44); Carbon Dioxide 25 mmol/L (23-31); Chloride 107 mmol/L (98-107); Estimated GFR-MDRD 77; Glucose 102 mg/dL (80-115); Potassium 4.4 mmol/L (3.5-5.1); Sodium 138 mmol/L (136-145)
[2020-02-27] MEDS: Dexamethasone 4 MG TAB PO SCH (08:17)
[2020-02-27] MEDS: Losartan 25 MG TAB PO SCH (08:18)
[2020-02-27] MEDS: Amlodipine 5 MG TAB PO SCH (08:18)
[2020-02-27] MEDS: Enoxaparin Sodium 40 MG/0.4 ML SYRINGE SC SCH (08:19)
--- NOTE | 2020-02-27 08:24 | PDOC.HOSPP ---
- Subjective Encounter Date: 02/27/20 Encounter Time: 10:00 Subjective: No changes from yesterday. Continued MAKI but ok at rest. Worried about her mother who is also in the hospital with Covid-19 and not doing well. - Objective Vital Signs & Weight: Vital Signs (12 hours) Temp Pulse Resp BP Pulse Ox 02/27/20 02:31 97.9 F 63 20 129/75 93 L Weight Admit Weight 196 lb 12.8 oz Weight 196 lb 12.8 oz I&O: 02/26/20 02/27/20 02/28/20 06:59 06:59 06:59 Intake Total 421 1200 Balance 421 1200 Result Diagrams: 02/27/20 06:42 02/27/20 06:42 Hospitalist ROS - Review of Systems Constitutional: denies: fever, chills Respiratory: reports: cough, shortness of breath, SOB with excertion Cardiovascular: denies: chest pain, palpitations Gastrointestinal: denies: nausea, vomiting, abdominal pain Genitourinary: denies: dysuria, hematuria - Medication Medications: Active Medications Generic Name Dose Route Start Last Admin Trade Name Freq PRN Reason Stop Dose Admin Acetaminophen 650 mg 02/21/20 20:24 02/26/20 17:01 Tylenol PO 650 mg Q4H PRN Administration Headache/Fever/Mild Pain (1-3) Amlodipine Besylate 5 mg 02/23/20 09:00 02/27/20 08:18 Norvasc PO 5 mg DAILY SAHRA Administration Dexamethasone 6 mg 02/23/20 08:00 02/27/20 08:17 Decadron PO 6 mg QAM-WM SAHRA Administration Enoxaparin Sodium 40 mg 02/22/20 09:00 02/27/20 08:19 Lovenox SC 40 mg 0900 SAHRA Administration Lidocaine 1 patch 02/25/20 02:00 02/27/20 01:56 Lidoderm 5% Patch TD Not Given 0200 SAHRA Liothyronine Sodium 15 mcg 02/21/20 21:00 02/26/20 20:41 Cytomel PO 15 mcg BID SAHRA Administration Losartan Potassium 50 mg 02/23/20 09:00 02/27/20 08:18 Cozaar PO 50 mg DAILY SAHRA Administration Miscellaneous Medication 1 each 02/25/20 14:00 02/26/20 15:21 Lidocaine Patch Removal TOP 1 each 1400 SAHRA Administration Ondansetron HCl 4 mg 02/21/20 20:24 02/23/20 22:00 Zofran IVP 4 mg Q6H PRN Administration Nausea/Vomiting Simvastatin 40 mg 02/22/20 21:00 02/26/20 19:31 Zocor PO 40 mg QPM SAHRA Administration Tramadol HCl 50 mg 02/21/20 20:28 02/27/20 08:16 Ultram PO 50 mg Q6H PRN Administration Moderate Pain (4-6) - Exam General Appearance: NAD, awake alert ENT: moist mucosa Heart: RRR, no murmur, no gallops, no rubs Respiratory: CTAB, no wheezes, no rales, no ronchi Gastrointestinal: soft, non-tender, non-distended, normal bowel sounds Psychiatric: normal affect, normal behavior, A&O x 3 Hosp A/P (1) Acute respiratory failure with hypoxemia Code(s): J96.01 - ACUTE RESPIRATORY FAILURE WITH HYPOXIA Status: Acute (2) Pneumonia due to COVID-19 virus Code(s): U07.1 - COVID-19; J12.89 - OTHER VIRAL PNEUMONIA Status: Acute (3) Gram-neg septicemia Status: Ruled-out (4) UTI (urinary tract infection) Status: Resolved - Plan Supplemental oxygen as needed to achieve O2 sats of 92% or above. Down to 1L [place] this morning but got SOB so back up to 2L currently. Dexamethasone 6 mg orally daily. Day 02/12. UTI with G-tive bacteremia 1/2. Grew back Brevuni diminuta. Discussed with Dr. Ibrahim. Given the mild UA changes, the lack of clinical symptoms, cultures drawn in ER not after hospital stay, and the fact that only 1/2 cultures positive he believes this is likely a contaminent. Can d/c antibiotics. Once hypoxia resolves, patient will be discharged home.
[2020-02-27 08:28] LABS: Band 3 % (5-11); Lymphocytes 14 % (21-51); MDiff Complete? YES; Metamyelocyte 1 % (0-0); Monocytes 6 % (0-10); Myelocyte 1 % (0-0); Neutrophil 74 % (42-75); Platelet Morphology Comment Appears Increased; Polychromasia SLIGHT = 2-3 cells (100X) (0-2/hpf); Reactive Lymphocytes 1 % (0-10)
[2020-02-27] MEDS: Acetaminophen 325 MG TAB PO PRN ×2 (12:46→20:32)
[2020-02-27] MEDS: Liothyronine Sodium 5 MCG TAB PO SCH ×2 (12:47→20:32)
[2020-02-27] MEDS: Lidocaine Patch Removal 1 EACH TOP SCH (15:02)
[2020-02-27] MEDS: Simvastatin 40 MG TAB PO SCH (20:32)
[2020-02-28] MEDS: traMADol HCl 50 MG TAB PO PRN ×4 (03:01→20:15)
[2020-02-28] MEDS: Lidocaine 5% Patch TD SCH (03:01)
[2020-02-28 06:51] LABS: Band 21 % (5-11); Hemoglobin 12.2 g/dL (12.0-16.0); Lymphocytes 9 % (21-51); MDiff Complete? YES; Mean Corpuscular HGB CONC 32.5 g/dL (32.0-36.0); Mean Corpuscular Hemoglobin 29.3 pg (27.0-31.0); Mean Corpuscular Volume 90.1 fL (78.0-98.0); Mean Platelet Volume 8.2 fL (7.4-10.4); Metamyelocyte 2 % (0-0); Monocytes 11 % (0-10); Neutrophil 57 % (42-75); Platelet Count 425 thou/uL (130-400); Platelet Morphology Comment Appears Increased; RBC Distribution Width 12.9 % (11.5-14.5); Red Blood Cell (RBC) Count 4.16 mill/uL (4.20-5.40); White Blood Cell (WBC) Count 16.6 thou/uL (4.8-10.8)
[2020-02-28 07:09] LABS: Anion Gap 11 mmol/L (10-20); BUN (Urea Nitrogen) 27 mg/dL (9.8-20.1); Calc. Creatinine Clearance 108 mL/min (70-130); Calcium 8.5 mg/dL (7.8-10.44); Carbon Dioxide 23 mmol/L (23-31); Chloride 107 mmol/L (98-107); Estimated GFR-MDRD 77; Glucose 100 mg/dL (80-115); Potassium 4.4 mmol/L (3.5-5.1); Sodium 137 mmol/L (136-145)
[2020-02-28] MEDS: Liothyronine Sodium 5 MCG TAB PO SCH ×2 (08:52→20:15)
[2020-02-28] MEDS: Amlodipine 5 MG TAB PO SCH (08:53)
[2020-02-28] MEDS: Losartan 25 MG TAB PO SCH (08:53)
[2020-02-28] MEDS: Dexamethasone 4 MG TAB PO SCH (08:53)
[2020-02-28] MEDS: Enoxaparin Sodium 40 MG/0.4 ML SYRINGE SC SCH (08:53)
--- NOTE | 2020-02-28 14:50 | PDOC.HOSPP ---
- Subjective Encounter Date: 02/28/20 Encounter Time: 10:20 Subjective: talk to pt in detail over the phone and visited her. she still feels SOB w.. ambulation, 93% sat w.. 2 Li O2. - Objective Vital Signs & Weight: Vital Signs (12 hours) Temp Pulse Resp BP Pulse Ox 02/28/20 08:53 73 02/28/20 08:00 98.6 F 65 18 126/70 94 L 02/28/20 03:11 73 18 93 L Weight Admit Weight 196 lb 12.8 oz Weight 196 lb 12.8 oz I&O: 02/27/20 02/28/20 02/29/20 06:59 06:59 06:59 Intake Total 1200 1230 Balance 1200 1230 Result Diagrams: 02/28/20 06:23 02/28/20 06:23 Hospitalist ROS - Medication Medications: Active Medications Generic Name Dose Route Start Last Admin Trade Name Freq PRN Reason Stop Dose Admin Acetaminophen 650 mg 02/21/20 20:24 02/27/20 20:32 Tylenol PO 650 mg Q4H PRN Administration Headache/Fever/Mild Pain (1-3) Amlodipine Besylate 5 mg 02/23/20 09:00 02/28/20 08:53 Norvasc PO 5 mg DAILY SAHRA Administration Dexamethasone 6 mg 02/23/20 08:00 02/28/20 08:53 Decadron PO 6 mg QAM-WM SAHRA Administration Enoxaparin Sodium 40 mg 02/22/20 09:00 02/28/20 08:53 Lovenox SC 40 mg 0900 SAHRA Administration Lidocaine 1 patch 02/25/20 02:00 02/28/20 03:01 Lidoderm 5% Patch TD 1 patch 0200 SAHRA Administration Liothyronine Sodium 15 mcg 02/21/20 21:00 02/28/20 08:52 Cytomel PO 15 mcg BID SAHRA Administration Losartan Potassium 50 mg 02/23/20 09:00 02/28/20 08:53 Cozaar PO 50 mg DAILY SAHRA Administration Miscellaneous Medication 1 each 02/25/20 14:00 02/27/20 15:02 Lidocaine Patch Removal TOP Not Given 1400 SAHRA Ondansetron HCl 4 mg 02/21/20 20:24 02/23/20 22:00 Zofran IVP 4 mg Q6H PRN Administration Nausea/Vomiting Simvastatin 40 mg 02/22/20 21:00 02/27/20 20:32 Zocor PO 40 mg QPM SAHRA Administration Tramadol HCl 50 mg 02/21/20 20:28 02/28/20 08:52 Ultram PO 50 mg Q6H PRN Administration Moderate Pain (4-6) - Exam General Appearance: NAD, awake alert ENT: normocephalic atraumatic Psychiatric: normal affect, normal behavior, A&O x 3 Hosp A/P - Plan (1) Acute respiratory failure with hypoxemia Code(s): J96.01 - ACUTE RESPIRATORY FAILURE WITH HYPOXIA Status: Acute (2) Pneumonia due to COVID-19 virus Code(s): U07.1 - COVID-19; J12.89 - OTHER VIRAL PNEUMONIA Status: Acute (3) Gram-neg septicemia Status: Ruled-out (4) UTI (urinary tract infection) Status: Resolved Dexamethasone 6 mg orally daily. Day 02/12. UTI with G-tive bacteremia 1/2. - Grew back Brevuni diminuta. - Given the mild UA changes, the lack of clinical symptoms, cultures drawn in ER not after hospital stay, and the fact that only 1/2 cultures positive ID believes this is likely a contaminent. Can d/c antibiotics. Once hypoxia resolves, patient will be discharged home. sats improving. will plan for dc when sats > 90 w.. ambulation.
[2020-02-28] MEDS: Lidocaine Patch Removal 1 EACH TOP SCH (15:42)
[2020-02-28] MEDS: Acetaminophen 325 MG TAB PO PRN (20:15)
[2020-02-28] MEDS: Simvastatin 40 MG TAB PO SCH (20:15)
[2020-02-29] MEDS: traMADol HCl 50 MG TAB PO PRN ×4 (01:28→20:34)
[2020-02-29] MEDS: Lidocaine 5% Patch TD SCH (01:28)
[2020-02-29] MEDS: Acetaminophen 325 MG TAB PO PRN (06:26)
[2020-02-29 06:47] LABS: Hemoglobin 12.5 g/dL (12.0-16.0); Mean Corpuscular HGB CONC 32.7 g/dL (32.0-36.0); Mean Corpuscular Hemoglobin 30.2 pg (27.0-31.0); Mean Corpuscular Volume 92.3 fL (78.0-98.0); Mean Platelet Volume 8.3 fL (7.4-10.4); Platelet Count 366 thou/uL (130-400); RBC Distribution Width 13.2 % (11.5-14.5); Red Blood Cell (RBC) Count 4.16 mill/uL (4.20-5.40); White Blood Cell (WBC) Count 17.3 thou/uL (4.8-10.8)
[2020-02-29 07:06] LABS: Anion Gap 12 mmol/L (10-20); BUN (Urea Nitrogen) 30 mg/dL (9.8-20.1); Calc. Creatinine Clearance 97 mL/min (70-130); Calcium 8.7 mg/dL (7.8-10.44); Carbon Dioxide 21 mmol/L (23-31); Chloride 107 mmol/L (98-107); Estimated GFR-MDRD 68; Glucose 98 mg/dL (80-115); Potassium 4.7 mmol/L (3.5-5.1); Sodium 135 mmol/L (136-145)
[2020-02-29] MEDS: Enoxaparin Sodium 40 MG/0.4 ML SYRINGE SC SCH (07:46)
[2020-02-29] MEDS: Liothyronine Sodium 5 MCG TAB PO SCH ×2 (07:46→20:34)
[2020-02-29] MEDS: Losartan 25 MG TAB PO SCH (07:47)
[2020-02-29] MEDS: Dexamethasone 4 MG TAB PO SCH (07:47)
[2020-02-29] MEDS: Amlodipine 5 MG TAB PO SCH (07:47)
[2020-02-29 07:58] LABS: Band 2 % (5-11); Lymphocytes 6 % (21-51); MDiff Complete? YES; Monocytes 7 % (0-10); Myelocyte 1 % (0-0); Neutrophil 83 % (42-75); Platelet Morphology Comment Appears Adequate; Polychromasia SLIGHT = 2-3 cells (100X) (0-2/hpf); Reactive Lymphocytes 1 % (0-10)
--- NOTE | 2020-02-29 10:16 | RAD ---
Exam: Chest one view HISTORY:Elevated white blood cell count Comparison: 02/21/2020 FINDINGS: Cardiac silhouette: Normal Aorta: Atherosclerosis Pulmonary vessels: Normal Costophrenic angles: Clear LUNGS: No masses or consolidation. Pneumothorax: None Osseous abnormalities: None IMPRESSION: No acute cardiopulmonary process. Atherosclerosis
[2020-02-29 12:26] LABS: ALT (SGPT) 49 U/L (8-55); AST (SGOT) 21 U/L (5-34); Albumin 3.3 g/dL (3.4-4.8); Alkaline Phosphatase 63 U/L (40-110); Bilirubin, Direct 0.2 mg/dL (0.1-0.3); Bilirubin, Total 0.4 mg/dL (0.2-1.2); CRP (Inflammatory) Less than 0.50 mg/dL (= or < 0.5); Protein, Total 6.2 g/dL (6.0-8.3)
--- NOTE | 2020-02-29 14:06 | PDOC.HOSPP ---
- Subjective Encounter Date: 02/29/20 Encounter Time: 11:20 Subjective: pt seen this am, she says still she is not feeling well, overall generalized fatigues. wbcs keep trending up. repet cxr. she is sating well in RA. - Objective Vital Signs & Weight: Vital Signs (12 hours) Temp Pulse Resp BP Pulse Ox 02/29/20 12:00 97.6 F 67 18 139/74 94 L 02/29/20 08:00 97.9 F 63 18 149/76 H 93 L 02/29/20 07:47 75 Weight Admit Weight 196 lb 12.8 oz Weight 196 lb 12.8 oz I&O: 02/28/20 02/29/20 03/01/20 06:59 06:59 06:59 Intake Total 1230 900 480 Balance 1230 900 480 Result Diagrams: 02/29/20 06:34 02/29/20 06:34 Hospitalist ROS - Medication Medications: Active Medications Generic Name Dose Route Start Last Admin Trade Name Freq PRN Reason Stop Dose Admin Acetaminophen 650 mg 02/21/20 20:24 02/29/20 06:26 Tylenol PO 650 mg Q4H PRN Administration Headache/Fever/Mild Pain (1-3) Amlodipine Besylate 5 mg 02/23/20 09:00 02/29/20 07:47 Norvasc PO 5 mg DAILY SAHRA Administration Dexamethasone 6 mg 02/23/20 08:00 02/29/20 07:47 Decadron PO 6 mg QAM-WM SAHRA Administration Enoxaparin Sodium 40 mg 02/22/20 09:00 02/29/20 07:46 Lovenox SC 40 mg 0900 SAHRA Administration Lidocaine 1 patch 02/25/20 02:00 02/29/20 01:28 Lidoderm 5% Patch TD 1 patch 0200 SAHRA Administration Liothyronine Sodium 15 mcg 02/21/20 21:00 02/29/20 07:46 Cytomel PO 15 mcg BID SAHRA Administration Losartan Potassium 50 mg 02/23/20 09:00 02/29/20 07:47 Cozaar PO 50 mg DAILY SAHRA Administration Miscellaneous Medication 1 each 02/25/20 14:00 02/28/20 15:42 Lidocaine Patch Removal TOP Not Given 1400 SAHRA Ondansetron HCl 4 mg 02/21/20 20:24 02/23/20 22:00 Zofran IVP 4 mg Q6H PRN Administration Nausea/Vomiting Simvastatin 40 mg 02/22/20 21:00 02/28/20 20:15 Zocor PO 40 mg QPM SAHRA Administration Tramadol HCl 50 mg 02/21/20 20:28 02/29/20 07:48 Ultram PO 50 mg Q6H PRN Administration Moderate Pain (4-6) - Exam General Appearance: NAD, awake alert, ill appearing ENT: normocephalic atraumatic Neurological: no focal deficits Psychiatric: normal affect, normal behavior, A&O x 3 Hosp A/P - Plan (1) Acute respiratory failure with hypoxemia Code(s): J96.01 - ACUTE RESPIRATORY FAILURE WITH HYPOXIA Status: Acute (2) Pneumonia due to COVID-19 virus Code(s): U07.1 - COVID-19; J12.89 - OTHER VIRAL PNEUMONIA Status: Acute (3) Gram-neg septicemia Status: Ruled-out Dexamethasone 6 mg orally daily. Day 02/12. UTI with G-tive bacteremia /. - Grew back Brevuni diminuta. - Given the mild UA changes, the lack of clinical symptoms, cultures drawn in ER not after hospital stay, and the fact that only 1/2 cultures positive ID believes this is likely a contaminent. no antibiotics. Hypoxia --improved Leukocytosis -- decadron induced? -pt still under weather, more fatigue. -cxr - no new infilaterate - d-dimer and ferritin high. -cw supportive care.
[2020-02-29] MEDS: Lidocaine Patch Removal 1 EACH TOP SCH (15:00)
[2020-02-29] MEDS: Simvastatin 40 MG TAB PO SCH (20:35)
[2020-03-01] MEDS: traMADol HCl 50 MG TAB PO PRN ×4 (01:58→22:20)
[2020-03-01] MEDS: Lidocaine 5% Patch TD SCH (01:58)
[2020-03-01 05:47] LABS: Hemoglobin A1c 6.1 % (4.0-6.0)
[2020-03-01] MEDS: Dexamethasone 4 MG TAB PO SCH (07:35)
[2020-03-01] MEDS: Losartan 25 MG TAB PO SCH (07:35)
[2020-03-01] MEDS: Liothyronine Sodium 5 MCG TAB PO SCH ×2 (07:35→21:14)
[2020-03-01] MEDS: Amlodipine 5 MG TAB PO SCH (07:35)
[2020-03-01] MEDS: Enoxaparin Sodium 40 MG/0.4 ML SYRINGE SC SCH (07:36)
[2020-03-01 12:12] LABS: #Basophils 0.1 thou/uL (0.0-0.2); #Lymphocytes 0.9 thou/uL (1.20-3.40); #Monocytes 1.1 thou/uL (0.11-0.59); #Neutrophils 14.3 thou/uL (1.40-6.50); %Basophils 0.4 % (0.0-1.0); %Eosinophils 0.3 % (0.0-10.0); %Lymphocytes 5.6 % (21.0-51.0); %Monocytes 6.9 % (0.0-10.0); %Neutrophils 86.8 % (42.0-75.0); Hemoglobin 13.2 g/dL (12.0-16.0); Mean Corpuscular HGB CONC 32.9 g/dL (32.0-36.0); Mean Corpuscular Hemoglobin 30.1 pg (27.0-31.0); Mean Corpuscular Volume 91.4 fL (78.0-98.0); Mean Platelet Volume 8.4 fL (7.4-10.4); Platelet Count 305 thou/uL (130-400); RBC Distribution Width 13.2 % (11.5-14.5); White Blood Cell (WBC) Count 16.5 thou/uL (4.8-10.8)
--- NOTE | 2020-03-01 15:12 | PDOC.HOSPP ---
- Subjective Encounter Date: 03/01/20 Encounter Time: 11:20 Subjective: feels short of breath with ambulation. appears in no distress. sitting in the bed. wbcs slightly downward trend. - Objective Vital Signs & Weight: Vital Signs (12 hours) Temp Pulse Resp BP Pulse Ox 03/01/20 08:00 97.9 F 57 L 18 118/64 94 L 03/01/20 07:35 74 03/01/20 04:57 74 20 92 L Weight Admit Weight 196 lb 12.8 oz Weight 196 lb 12.8 oz I&O: 02/29/20 03/01/20 03/02/20 06:59 06:59 06:59 Intake Total 900 720 480 Balance 900 720 480 Result Diagrams: 03/01/20 11:58 02/29/20 06:34 Hospitalist ROS - Medication Medications: Active Medications Generic Name Dose Route Start Last Admin Trade Name Freq PRN Reason Stop Dose Admin Acetaminophen 650 mg 02/21/20 20:24 02/29/20 06:26 Tylenol PO 650 mg Q4H PRN Administration Headache/Fever/Mild Pain (1-3) Amlodipine Besylate 5 mg 02/23/20 09:00 03/01/20 07:35 Norvasc PO 5 mg DAILY SAHRA Administration Dexamethasone 6 mg 02/23/20 08:00 03/01/20 07:35 Decadron PO 6 mg QAM-WM SAHRA Administration Enoxaparin Sodium 40 mg 02/22/20 09:00 03/01/20 07:36 Lovenox SC 40 mg 0900 SAHRA Administration Lidocaine 1 patch 02/25/20 02:00 03/01/20 01:58 Lidoderm 5% Patch TD 1 patch 0200 SAHRA Administration Liothyronine Sodium 15 mcg 02/21/20 21:00 03/01/20 07:35 Cytomel PO 15 mcg BID SAHRA Administration Losartan Potassium 50 mg 02/23/20 09:00 03/01/20 07:35 Cozaar PO 50 mg DAILY SAHRA Administration Miscellaneous Medication 1 each 02/25/20 14:00 02/29/20 15:00 Lidocaine Patch Removal TOP 1 each 1400 SAHRA Administration Ondansetron HCl 4 mg 02/21/20 20:24 02/23/20 22:00 Zofran IVP 4 mg Q6H PRN Administration Nausea/Vomiting Simvastatin 40 mg 02/22/20 21:00 02/29/20 20:35 Zocor PO 40 mg QPM SAHRA Administration Tramadol HCl 50 mg 02/21/20 20:28 03/01/20 07:36 Ultram PO 50 mg Q6H PRN Administration Moderate Pain (4-6) - Exam General Appearance: NAD, awake alert Eye: PERRL ENT: normocephalic atraumatic Neurological: no focal deficits Psychiatric: normal affect, normal behavior, A&O x 3 Hosp A/P - Plan (1) Acute respiratory failure with hypoxemia Code(s): J96.01 - ACUTE RESPIRATORY FAILURE WITH HYPOXIA Status: Acute (2) Pneumonia due to COVID-19 virus Code(s): U07.1 - COVID-19; J12.89 - OTHER VIRAL PNEUMONIA Status: Acute (3) Gram-neg septicemia Status: Ruled-out Dexamethasone 6 mg orally daily. Day 02/12. UTI with G-tive bacteremia 09/06. - Grew back Brevuni diminuta. - Given the mild UA changes, the lack of clinical symptoms, cultures drawn in ER not after hospital stay, and the fact that only 1/2 cultures positive ID believes this is likely a contaminent. no antibiotics. Hypoxia --improved 94% in RA. SOB w.. exertion Leukocytosis -- decadron induced?---- on it is trending down. -pt still under weather, more fatigue. -cxr - no new infilaterate - d-dimer and ferritin high. -cw supportive care. De conditioning - d/t COVID. - will request PTherapy whether they can help her to ambulate inside the room and if she is able to, then plan to send home.
[2020-03-01] MEDS: Lidocaine Patch Removal 1 EACH TOP SCH (15:35)
[2020-03-01] MEDS: Simvastatin 40 MG TAB PO SCH (21:14)
[2020-03-02] MEDS: traMADol HCl 50 MG TAB PO PRN ×2 (04:10→10:12)
[2020-03-02] MEDS: Amlodipine 5 MG TAB PO SCH (07:31)
[2020-03-02] MEDS: Dexamethasone 4 MG TAB PO SCH (07:31)
[2020-03-02] MEDS: Liothyronine Sodium 5 MCG TAB PO SCH (07:31)
[2020-03-02] MEDS: Enoxaparin Sodium 40 MG/0.4 ML SYRINGE SC SCH (07:32)
[2020-03-02] MEDS: Losartan 25 MG TAB PO SCH (07:32)
[2020-03-02 12:09] VITALS: BP 136/65; TEMP 97.5
--- NOTE | 2020-03-02 12:22 | EKG ---
Test Reason : Blood Pressure : / mmHG Vent. Rate : 069 BPM Atrial Rate : 069 BPM P-R Int : 130 ms QRS Dur : 086 ms QT Int : 428 ms P-R-T Axes : 029 022 028 degrees QTc Int : 458 ms Normal sinus rhythm Normal ECG Confirmed by NII HERRERA DO ([id number]), order editor LEWIS ALBA ([id number]) on 03/02/2020 12:21:58 PM Referred By: Confirmed By:NII HERRERA DO
--- NOTE | 2020-03-03 12:30 | DIS ---
DATE OF ADMISSION: 02/21/2020 DATE OF DISCHARGE: 03/02/2020 DISCHARGE DIAGNOSES: 1. COVID pneumonia. 2. Acute respiratory failure and hypoxia secondary to pneumonia. 3. Gram-negative septicemia, ruled out urinary tract infection with gram- negative bacteremia and possible contamination and did not require antibiotics. She had elevated leukocytosis and that has trended down probably due to both COVID as well as Decadron induced. Deconditioning secondary to COVID as well as urinary tract infection. MEDICATIONS: She will resume her previous home medications. The new one is Decadron 6 mg daily for five days. PHYSICAL EXAMINATION: VITAL SIGNS: On the day of discharge, temperature 97.5, pulse 78, blood pressure is 136/65, saturating 93% in room air. GENERAL: The patient is alert, oriented, nontoxic appearing. She is ambulating without any dyspnea on exertion or shortness of breath. Physical Therapy did follow her inside her room. She is strong enough to go home. HOSPITAL COURSE: A 60-year-old female with a history of hypertension, hyperlipidemia, diagnosed COVID-19 two weeks ago, presented with worsening of malaise, fatigue, weakness, ongoing nausea, vomiting, diarrhea, and poor oral intake as well as presyncope. She was admitted in the COVID Section. She gradually improved with supportive measures as well as Decadron. Initial chest x-ray did reveal bilateral infiltrate. Supportive measures with IV fluid as well as antiemetic. Leukocytosis could be related to Decadron induced. Repeat chest x-ray without any new infiltrate. As repeat D-dimer and ferritin level being high, will continue with the Decadron for 5 more days prescribed. She also got a prescription for work excuse for next 3 weeks as a part-time basis. DISCHARGE INSTRUCTIONS: Activity as tolerated. Regular diet. Follow up with primary care physician in 1 week. If she has fever, cough, or worsening of fatigue, please visit the ER or call the PCP. TIME SPENT: Discharge time took over 35 minutes. [facility] ID: [id number] [facility]
== END 2020-03-02 14:20 | disposition home or self-care (01) | DRG 177 ==
LOC: ERS 15:00 → 2SW 18:44 → T4-B 02-26 19:09
PROVIDERS: ADMIT Internal Medicine; ATTEND Internal Medicine
DX: U07.1 COVID-19 (principal); J12.89 Other viral pneumonia; J96.01 Acute respiratory failure with hypoxia; E78.5 Hyperlipidemia, unspecified; E03.9 Hypothyroidism, unspecified; E78.00 Pure hypercholesterolemia, unspecified; I10 Essential (primary) hypertension; E86.0 Dehydration; D72.829 Elevated white blood cell count, unspecified; T38.0X5A Adverse effect of glucocorticoids and synthetic analogues, initial encounter; Z79.899 Other long term (current) drug therapy; R55 Syncope and collapse
CPT/HCPCS: 36415; 71045; 80048; 80053; 80076; 81003; 81015; 82550; 82728; 83036; 83605; 83615; 83690; 84145; 84484; 85007; 85025; 85027; 85379; 86140; 87040; 87077; 87149; 87186; 93005; 94760; 96361; 96374; J1100; J1650; J1956; J2405; J8540

== ENCOUNTER 2020-03-13 07:55 | Outpatient (CLI) | payer BC ==
--- NOTE | 2020-03-13 08:30 | RAD ---
Chest 2 views HISTORY: Dyspnea. Prior COVID pneumonia. COMPARISON: 02/29/2020. FINDINGS: Cardiac silhouette and pulmonary vasculature are unremarkable. Mediastinum is midline with aortic calcification. No lobar consolidation or evidence of pneumothorax. Subtle increased density over the lower posterior lungs on the lateral view is similar in appearance to prior exam and may represent parenchymal scarring or pulmonary vasculature. No significant pleural fluid. IMPRESSION : Atherosclerosis. No active cardiopulmonary abnormalities are otherwise demonstrated.
== END 2020-03-13 07:56 | disposition home or self-care (01) ==
LOC: BICRAD 07:55
PROVIDERS: ATTEND Family Medicine
DX: R06.02 Shortness of breath (principal); I70.90 Unspecified atherosclerosis
CPT/HCPCS: 71046

== ENCOUNTER 2020-03-21 15:30 | Outpatient (CLI) | payer BC | END 2020-03-21 15:31 | disposition home or self-care (01) | LOC: SLEEPLAB 15:30 | PROVIDERS: ATTEND Family Medicine | DX: G47.33 Obstructive sleep apnea (adult) (pediatric) (principal); R53.83 Other fatigue; R06.83 Snoring; I10 Essential (primary) hypertension; R40.0 Somnolence | CPT/HCPCS: 95806 ==

== ENCOUNTER 2020-10-04 03:43 | Emergency (ER) | payer BC | END 2020-10-04 05:19 | disposition home or self-care (01) | LOC: ERS 03:43 | DX: M54.16 Radiculopathy, lumbar region (principal); E03.9 Hypothyroidism, unspecified; E78.5 Hyperlipidemia, unspecified; E78.00 Pure hypercholesterolemia, unspecified; I10 Essential (primary) hypertension; Z79.899 Other long term (current) drug therapy | CPT/HCPCS: 99283 ==

== ENCOUNTER 2020-10-14 14:05 | Outpatient (CLI) | payer BC ==
--- NOTE | 2020-10-14 15:24 | RAD ---
Lumbar spine: 4 views INDICATIONS:Spondylolisthesis. Back pain. COMPARISON:Lumbar films from 2016 FINDINGS: Vertebral bodies maintain normal height. Disc spaces of lumbar spine maintain normal height. Grade 1 spondylolisthesis at L4-5 is again seen. This appears stable from prior exam. Prominent facet hypertrophy is again noted in the lower lumbar spine below L3. No soft tissue abnormality. IMPRESSION: Spondylolisthesis at L4-5 appears stable. Prominent facet hypertrophy again noted.
--- NOTE | 2020-10-14 15:39 | MRI ---
MRI lumbar spinewithout IV contrast: INDICATIONS: Spondylolisthesis. Back pain. COMPARISON:None. FINDINGS: Vertebral bodies maintain height and exhibit normal signal. Grade 1 anterolisthesis at L4-5. Disc spaces are maintained with mild loss of disc height at L4-5. T12-L1:No significant disc bulge or protrusion. No central canal or foraminal stenosis. L1-2: Annular fissure with mild broad-based disc bulge/protrusion flattening the thecal sac. No centr al canal or foraminal stenosis. L2-3:Mild diffuse disc bulge flattens the thecal sac. Mild facet hypertrophy. Posterior epidural fat. Mild central canal stenosis. L3-4:Mild disc bulge. Prominent facet and ligamentous hypertrophy. Mild central canal stenosis. Right foraminal stenosis. L4-5:Grade 1 anterolisthesis. Diffuse disc bulge. No significant central canal stenosis. No significa nt foraminal stenosis. L5-S1:No significant disc bulge or protrusion. No central canal or foraminal stenosis. Tarlov cyst on the right at S1-S2. IMPRESSION: 1.Grade 1 anterolisthesis at L4-5. Disc bulge at multiple levels with central canal and foraminal patricia nosis as detailed above.
== END 2020-10-14 14:06 | disposition home or self-care (01) ==
LOC: TBSIIMAG 14:05
PROVIDERS: ATTEND Surgery
DX: M43.16 Spondylolisthesis, lumbar region (principal); M79.606 Pain in leg, unspecified; M48.061 Spinal stenosis, lumbar region without neurogenic claudication; M51.9 Unspecified thoracic, thoracolumbar and lumbosacral intervertebral disc disorder
CPT/HCPCS: 72120; 72148

== ENCOUNTER 2020-11-18 14:30 | Outpatient (CLI) | payer BC ==
[2020-11-18 17:01] LABS: Hemoglobin 10.9 g/dL (12.0-15.5); Mean Corpuscular HGB CONC 31.1 g/dL (32.0-36.0); Mean Corpuscular Hemoglobin 28.6 pg (27.0-33.0); Mean Corpuscular Volume 91.9 fl (81.6-98.3); Mean Platelet Volume 11.4 fl (7.4-10.4); Platelet Count 308 10x3/uL (150-450); RBC Distribution Width 14.5 % (11.5-14.5); Red Blood Cell (RBC) Count 3.81 10x6/uL (3.90-5.03); White Blood Cell (WBC) Count 8.5 10x3/uL (3.5-10.5)
[2020-11-18 17:10] LABS: Anion Gap 17 mmol/L (10-20); BUN (Urea Nitrogen) 38 mg/dL (9.8-20.1); Calc. Creatinine Clearance 0 mL/min (70-130); Calcium 9.7 mg/dL (7.8-10.44); Carbon Dioxide 26 mmol/L (23-31); Chloride 99 mmol/L (98-107); Glucose 82 mg/dL (80-115); Potassium 4.2 mmol/L (3.5-5.1); Sodium 138 mmol/L (136-145)
[2020-11-19 01:44] LABS: SARS-CoV-2 PCR by NAA Not Detected (NotDetected)
== END 2020-11-18 14:31 | disposition home or self-care (01) ==
LOC: LABBT 14:30
PROVIDERS: ATTEND Surgery
DX: Z01.818 Encounter for other preprocedural examination (principal); M51.26 Other intervertebral disc displacement, lumbar region; M54.16 Radiculopathy, lumbar region; Z20.822 Contact with and (suspected) exposure to COVID-19
CPT/HCPCS: 80048; 85027; 87635; 93005; 93010; U0003; U0005

== ENCOUNTER 2020-11-21 07:46 | Day surgery (SDC) | payer BC ==
[2020-11-21 08:32] LABS: PTT 25.8 sec (22.9-36.1); Prothrombin Time 13.5 sec (12.0-14.7)
[2020-11-21] MEDS ORDERED: Thrombin 5000 UNITS/5 ML VIAL ONE (10:15)
[2020-11-21] MEDS ORDERED: Fentanyl 100 MCG/2 ML VIAL ONE ×3 (10:38→13:23)
[2020-11-21] MEDS ORDERED: Rocuronium Bromide 10 MG/ML (10ML VIAL) ONE (10:44)
[2020-11-21] MEDS ORDERED: Metoclopramide HCl 10 MG/2 ML VIAL ONE (10:44)
[2020-11-21] MEDS ORDERED: Ketorolac Tromethamine 30 MG/ML VIAL ONE (10:44)
[2020-11-21] MEDS ORDERED: PROPOFOL 200 MG/20 ML VIAL ONE (10:44)
[2020-11-21] MEDS ORDERED: ePHEDrine 50 MG/ML VIAL ONE (10:44)
[2020-11-21] MEDS ORDERED: Glycopyrrolate 0.2 MG/ML 5 ML SYRINGE ONE (10:44)
[2020-11-21] MEDS ORDERED: PHENYLEPHRINE-NS 100 MCG/ML 10 ML SYRINGE ONE (10:44)
[2020-11-21] MEDS ORDERED: Ondansetron PF 4 MG/2 ML Vial ONE (10:44)
[2020-11-21] MEDS ORDERED: Lidocaine 1% PF 5 ML VIAL ONE (10:44)
[2020-11-21] MEDS ORDERED: Dexamethasone 20 MG/5 ML VIAL ONE (10:44)
[2020-11-21] MEDS ORDERED: Mag-Al 1200 mg/1200 mg/30 ML UDCUP PO PRN (11:04)
[2020-11-21] MEDS ORDERED: Bisacodyl 10 MG SUPP PR PRN (11:04)
[2020-11-21] MEDS ORDERED: Ondansetron PF 4 MG/2 ML Vial IVP PRN (11:04)
[2020-11-21] MEDS ORDERED: Milk Of Magnesia 30 ML UDCUP PO PRN (11:04)
[2020-11-21] MEDS ORDERED: Acetaminophen 325 MG TAB PO PRN (11:04)
[2020-11-21 14:41] VITALS: BMI 34.4
[2020-11-21] MEDS ORDERED: Gabapentin 300 MG CAP PO SCH (15:00)
[2020-11-21] MEDS: Sodium Chloride 0.9% 1,000 ML IV SCH (15:42)
[2020-11-21] MEDS: Gabapentin 300 MG CAP PO SCH ×2 (15:42→21:27)
[2020-11-21] MEDS: HYDROcodone/Acetaminophen 7.5/325 mg Tablet PO PRN (15:43)
[2020-11-21] MEDS: CEFAZOLIN 2 GM in Premix Bag 1 BAG IVPB SCH (17:10)
[2020-11-21] MEDS: tiZANidine HCl 4 MG TAB PO PRN (17:21)
[2020-11-21] MEDS: traMADol HCl 50 MG TAB PO PRN (21:25)
[2020-11-21] MEDS: Liothyronine Sodium 5 MCG TAB PO SCH (21:26)
[2020-11-21] MEDS: Atorvastatin Calcium 20 MG TAB PO SCH (21:27)
[2020-11-21] MEDS: Morphine 2 MG/ML VIAL SLOW IVP PRN (21:52)
[2020-11-22] MEDS: Sodium Chloride 0.9% 1,000 ML IV SCH ×2 (00:55→15:19)
[2020-11-22] MEDS: CEFAZOLIN 2 GM in Premix Bag 1 BAG IVPB SCH (01:49)
[2020-11-22] MEDS: traMADol HCl 50 MG TAB PO PRN (03:52)
[2020-11-22] MEDS: tiZANidine HCl 4 MG TAB PO PRN ×2 (06:52→19:22)
[2020-11-22] MEDS: Liothyronine Sodium 5 MCG TAB PO SCH ×2 (08:21→20:36)
[2020-11-22] MEDS: Valsartan 80 MG TAB PO SCH (08:22)
[2020-11-22] MEDS: Gabapentin 300 MG CAP PO SCH ×4 (08:23→20:35)
[2020-11-22] MEDS: Hydrochlorothiazide 25 MG TAB PO SCH (08:23)
[2020-11-22] MEDS: Acetaminophen/Codeine 30-300mg Tablet PO PRN ×2 (12:03→22:59)
[2020-11-22] MEDS ORDERED: Dexamethasone 4 mg/ml Vial SLOW IVP SCH (13:15)
[2020-11-22] MEDS ORDERED: Dexamethasone 4 mg/ml Vial ONE (13:33)
[2020-11-22] MEDS: Atorvastatin Calcium 20 MG TAB PO SCH (20:36)
[2020-11-23] MEDS: HYDROcodone/Acetaminophen 7.5/325 mg Tablet PO PRN ×3 (00:32→12:52)
[2020-11-23] MEDS: Sodium Chloride 0.9% 1,000 ML IV SCH (01:49)
[2020-11-23] MEDS: Morphine 2 MG/ML VIAL SLOW IVP PRN (03:06)
[2020-11-23] MEDS: tiZANidine HCl 4 MG TAB PO PRN (06:00)
[2020-11-23] MEDS: Valsartan 80 MG TAB PO SCH (08:29)
[2020-11-23] MEDS: Gabapentin 300 MG CAP PO SCH (08:30)
[2020-11-23] MEDS: Hydrochlorothiazide 25 MG TAB PO SCH (08:30)
[2020-11-23] MEDS: Liothyronine Sodium 5 MCG TAB PO SCH (08:30)
[2020-11-23] MEDS: Acetaminophen/Codeine 30-300mg Tablet PO PRN (10:26)
[2020-11-23 12:23] VITALS: BP 175/92; TEMP 98.3
== END 2020-11-23 13:04 | disposition home or self-care (01) ==
LOC: SDC 07:46 → SJJU 14:40 → SDC 11-23 13:04
PROVIDERS: ATTEND Surgery
PROC: 0SB20ZZ Excision of Lumbar Vertebral Disc, Open Approach (ICD-10-PCS; principal; 2020-11-23)
PROC: 01NB0ZZ Release Lumbar Nerve, Open Approach (ICD-10-PCS; principal; 2020-11-23)
DX: M51.16 Intervertebral disc disorders with radiculopathy, lumbar region (principal); M48.061 Spinal stenosis, lumbar region without neurogenic claudication; M70.61 Trochanteric bursitis, right hip; R60.0 Localized edema; Z79.899 Other long term (current) drug therapy
CPT/HCPCS: 36415; 76000; 85610; 85730; 93970; J0690; J1100; J1885; J2270; J2405; J2704; J2765; J3010; J3370; J3490

== ENCOUNTER 2020-12-18 11:17 | Outpatient (CLI) | payer BC ==
[2020-12-18] MEDS ORDERED: Iopamidol 370 76% 100 ML VIAL ONE (13:03)
== END 2020-12-18 11:18 | disposition home or self-care (01) ==
LOC: CT 11:17
PROVIDERS: ATTEND Surgery
DX: M25.551 Pain in right hip (principal); S72.051A Unspecified fracture of head of right femur, initial encounter for closed fracture; M25.451 Effusion, right hip; M87.9 Osteonecrosis, unspecified; K57.30 Diverticulosis of large intestine without perforation or abscess without bleeding; I70.8 Atherosclerosis of other arteries; I70.0 Atherosclerosis of aorta; Z90.49 Acquired absence of other specified parts of digestive tract; Z90.710 Acquired absence of both cervix and uterus
CPT/HCPCS: 74177; Q9967

== ENCOUNTER 2021-01-04 09:32 | Emergency (ER) | payer BC ==
[2021-01-04] MEDS ORDERED: Ondansetron PF 4 MG/2 ML Vial ONE (10:23)
[2021-01-04 10:40] LABS: ALT (SGPT) 25 U/L (8-55); AST (SGOT) 17 U/L (5-34); Albumin 4.3 g/dL (3.4-4.8); Alkaline Phosphatase 91 U/L (40-110); Anion Gap 18 mmol/L (10-20); BUN (Urea Nitrogen) 19 mg/dL (9.8-20.1); Bilirubin, Total 0.5 mg/dL (0.2-1.2); Calc. Creatinine Clearance 0 mL/min (70-130); Calcium 10.3 mg/dL (7.8-10.44); Carbon Dioxide 20 mmol/L (23-31); Chloride 102 mmol/L (98-107); Globulin 3.4 g/dL (2.4-3.5); Glucose 108 mg/dL (80-115); Potassium 3.4 mmol/L (3.5-5.1); Protein, Total 7.7 g/dL (5.8-8.1); Sodium 137 mmol/L (136-145)
[2021-01-04 10:40] LABS: Bacteria/HPF None Seen HPF (None Seen); Bilirubin Negative (Negative); Blood, Urine 1+ (Negative); Clarity Clear (Clear); Glucose, Urine (Dipstick) Normal (Negative); Ketone, Urine Negative (Negative); Leukocyte Negative Leu/uL (Negative); Mucous/LPF Rare LPF (<2+); Nitrite Negative (Negative); Protein, Urine (Dipstick) 30 mg/dL (Neg-Trace); Specific Gravity, Urine 1.025 (1.002-1.036); Squamous Epithelial None Seen HPF (0-3); Urobilinogen Normal mg/dL (Less than 2); WBC/HPF 0-3 HPF (0-3); pH, Urine 5.5 (5.0-9.0)
[2021-01-04 10:41] LABS: RBC/HPF 0-3 HPF (0-3)
== END 2021-01-04 12:52 | disposition home or self-care (01) ==
LOC: ERS 09:32
DX: E86.0 Dehydration (principal); R19.7 Diarrhea, unspecified; E03.9 Hypothyroidism, unspecified; E78.5 Hyperlipidemia, unspecified; I10 Essential (primary) hypertension; Z79.899 Other long term (current) drug therapy
CPT/HCPCS: 51701; 80053; 81003; 81015; 96372; 96374; J0500; J2405

== ENCOUNTER 2021-01-15 10:29 | Outpatient (CLI) | payer BC ==
[2021-01-15 12:47] LABS: #Basophils 0.1 10x3/uL (0.0-0.2); #Eosinphils 0.1 10x3/uL (0.0-0.5); #Neutrophils 7.8 10x3/uL (1.5-8.4); %Basophils 0.5 % (0.0-2.0); %Eosinophils 0.6 % (0.0-6.0); %Lymphocytes 15.6 % (18.0-47.0); %Monocytes 9.1 % (0.0-10.0); %Neutrophils 73.5 % (40.0-75.0); Hemoglobin 11.4 g/dL (12.0-15.5); Mean Corpuscular HGB CONC 31.7 g/dL (32.0-36.0); Mean Corpuscular Hemoglobin 29.2 pg (27.0-33.0); Mean Corpuscular Volume 92.1 fl (81.6-98.3); Mean Platelet Volume 11.4 fl (7.4-10.4); Platelet Count 335 10x3/uL (150-450); RBC Distribution Width 14.6 % (11.5-14.5); Red Blood Cell (RBC) Count 3.91 10x6/uL (3.90-5.03); White Blood Cell (WBC) Count 10.6 10x3/uL (3.5-10.5)
[2021-01-15 13:00] LABS: Bilirubin Neg (Negative); Blood, Urine 25 (Negative); Clarity Clear (Clear); Glucose, Urine (Dipstick) Normal (Negative); Ketone, Urine Negative (Negative); Leukocyte 100 (Negative); Nitrite Negative (Negative); Protein, Urine (Dipstick) Negative (Neg-Trace); Urobilinogen Normal mg/dL (Less than 2)
[2021-01-15 13:13] LABS: Bacteria/HPF 2+ HPF (None Seen); RBC/HPF 0-3 HPF (0-3); Squamous Epithelial 0-3 HPF (0-3)
[2021-01-15 13:22] LABS: Prothrombin Time 11.1 sec (9.5-12.1)
[2021-01-15 13:38] LABS: Anion Gap 19 mmol/L (10-20); BUN (Urea Nitrogen) 19 mg/dL (9.8-20.1); Calc. Creatinine Clearance 0 mL/min (70-130); Calcium 10.1 mg/dL (7.8-10.44); Carbon Dioxide 23 mmol/L (23-31); Chloride 100 mmol/L (98-107); Glucose 82 mg/dL (80-115); Potassium 3.6 mmol/L (3.5-5.1); Sodium 138 mmol/L (136-145)
[2021-01-15 18:48] LABS: SARS-CoV-2 PCR by NAA Not Detected (NotDetected)
== END 2021-01-15 10:30 | disposition home or self-care (01) ==
LOC: LABBT 10:29
PROVIDERS: ATTEND Orthopaedic Surgery
DX: Z01.818 Encounter for other preprocedural examination (principal); Z20.822 Contact with and (suspected) exposure to COVID-19; M87.051 Idiopathic aseptic necrosis of right femur
CPT/HCPCS: 80048; 81001; 85025; 85610; 87081; 87635; 93005; 93010; U0003; U0005

== ENCOUNTER 2021-01-15 10:30 | Inpatient (IN) | payer BC ==
[2021-01-19 09:26] VITALS: BMI 34.9
[2021-01-20] MEDS ORDERED: Tranexamic Acid 1,000 MG/10 ML VIAL ONE (12:01)
[2021-01-20] MEDS ORDERED: Sodium Chloride 0.9% 100 ML ONE (12:05)
[2021-01-20] MEDS ORDERED: Vancomycin 1.5 GRAM/300 ML BAG 1.5 GM in Premix Bag 1 BAG IVPB SCH (12:15)
[2021-01-20] MEDS ORDERED: Fentanyl 100 MCG/2 ML VIAL ONE ×5 (12:29→18:22)
[2021-01-20] MEDS ORDERED: Promethazine HCl 25 MG SUPP PR PRN (13:15)
[2021-01-20] MEDS ORDERED: Dexamethasone 20 MG/5 ML VIAL ONE (13:15)
[2021-01-20] MEDS ORDERED: Ondansetron PF 4 MG/2 ML Vial IVP PRN ×2 (13:15)
[2021-01-20] MEDS ORDERED: HYDROcodone/Acetaminophen 10/325 mg Tablet PO PRN ×2 (13:15)
[2021-01-20] MEDS ORDERED: Hydrocerin (Eucerin) Cream 120 gm Jar TOP PRN (13:15)
[2021-01-20] MEDS ORDERED: Promethazine HCl 25 MG/ML VIAL IM PRN ×3 (13:15→16:07)
[2021-01-20] MEDS ORDERED: Acetaminophen 325 MG TAB PO PRN (13:15)
[2021-01-20] MEDS ORDERED: diphenhydrAMINE 50 MG/ML VIAL IM PRN (13:15)
[2021-01-20] MEDS ORDERED: Bupivacaine 0.25% 10 ML VIAL EPIDURAL PRN (13:15)
[2021-01-20] MEDS ORDERED: PROPOFOL 200 MG/20 ML VIAL ONE (13:15)
[2021-01-20] MEDS ORDERED: diphenhydrAMINE 25 MG CAP PO PRN (13:15)
[2021-01-20] MEDS ORDERED: Lidocaine 1.5% w/Epi 1:200K 30 ML VIAL (Epid Use) ONE (13:15)
[2021-01-20] MEDS ORDERED: Ondansetron PF 4 MG/2 ML Vial ONE (13:15)
[2021-01-20] MEDS ORDERED: HYDROcodone/Acetaminophen 5/325 mg Tablet PO PRN (13:15)
[2021-01-20] MEDS ORDERED: Zolpidem Tartrate 5 MG TAB PO PRN ×2 (13:15)
[2021-01-20] MEDS ORDERED: Naloxone HCl 0.4 mg/ml Vial IV PRN (13:15)
[2021-01-20] MEDS ORDERED: Glycopyrrolate 0.2 MG/ML 5 ML SYRINGE ONE (13:15)
[2021-01-20] MEDS ORDERED: Lidocaine 1% PF 5 ML VIAL ONE (13:15)
[2021-01-20] MEDS ORDERED: PHENYLEPHRINE-NS 100 MCG/ML 10 ML SYRINGE ONE (13:15)
[2021-01-20] MEDS ORDERED: ePHEDrine Sulfate 50 MG/10 ML VIAL ONE (13:15)
[2021-01-20] MEDS ORDERED: Rocuronium Bromide 10 MG/ML (10ML VIAL) ONE (13:15)
[2021-01-20] MEDS ORDERED: Naloxone HCl 0.4 mg/ml Vial IVP PRN (13:15)
[2021-01-20] MEDS ORDERED: traMADol HCl 50 MG TAB PO PRN (13:15)
[2021-01-20] MEDS ORDERED: Bupivacaine 0.25% HCL 30 ML VIAL ONE (13:44)
[2021-01-20] MEDS ORDERED: PACU-Morphine 4MG/ML VIAL SLOW IVP PRN (16:07)
[2021-01-20] MEDS ORDERED: Promethazine HCl 25 MG/ML VIAL SLOW IVP PRN (16:07)
[2021-01-20] MEDS ORDERED: HYDROmorphone 2 MG/ML VIAL SLOW IVP PRN (16:07)
[2021-01-20] MEDS ORDERED: Ondansetron HCl/PF 4 MG/2 ML Vial IVP PRN (16:07)
[2021-01-20] MEDS ORDERED: Promethazine HCl 25 MG/ML VIAL ONE (16:13)
[2021-01-20] MEDS ORDERED: HYDROmorphone 2 MG/ML VIAL ONE (16:24)
[2021-01-20] MEDS: Sodium Chloride 0.9% 1,000 ML IV SCH ×2 (18:56→18:59)
[2021-01-20] MEDS: Ketorolac Tromethamine 30 MG/ML VIAL IVP SCH ×2 (18:58→23:49)
[2021-01-20] MEDS: Atorvastatin Calcium 20 MG TAB PO SCH (20:36)
[2021-01-20] MEDS: diphenhydrAMINE 25 MG CAP PO PRN ×2 (20:36→23:49)
[2021-01-20] MEDS: Aspirin 81 mg Enteric Coated Tablet PO SCH (20:36)
[2021-01-20] MEDS: CEFAZOLIN 2 GM in Premix Bag 1 BAG IVPB SCH (20:37)
[2021-01-20] MEDS: HYDROcodone/Acetaminophen 5/325 mg Tablet PO PRN (20:38)
[2021-01-21] MEDS: HYDROcodone/Acetaminophen 5/325 mg Tablet PO PRN ×4 (00:26→20:11)
[2021-01-21] MEDS: diphenhydrAMINE 50 MG/ML VIAL IVP PRN ×2 (03:34→06:44)
[2021-01-21] MEDS: CEFAZOLIN 2 GM in Premix Bag 1 BAG IVPB SCH (03:34)
[2021-01-21] MEDS: Levothyroxine Sodium 50 MCG TAB PO SCH (05:14)
[2021-01-21] MEDS: Fentanyl 5 mcg/Bup 0.075% Cadd 100 ML EPIDURAL SCH ×2 (05:15→18:15)
[2021-01-21] MEDS: Ketorolac Tromethamine 30 MG/ML VIAL IVP SCH ×3 (05:15→17:55)
[2021-01-21] MEDS: Sodium Chloride 0.9% 1,000 ML IV SCH (05:23)
[2021-01-21 05:36] LABS: Hemoglobin 9.7 g/dL (12.0-16.0); Mean Corpuscular HGB CONC 32.7 g/dL (32.0-36.0); Mean Corpuscular Hemoglobin 30.3 pg (27.0-31.0); Mean Corpuscular Volume 92.6 fL (78.0-98.0); Mean Platelet Volume 8.4 fL (7.4-10.4); Platelet Count 240 thou/uL (130-400); RBC Distribution Width 13.6 % (11.5-14.5); Red Blood Cell (RBC) Count 3.21 mill/uL (4.20-5.40); White Blood Cell (WBC) Count 14.7 thou/uL (4.8-10.8)
[2021-01-21] MEDS: Multivitamin W/ Minerals 1 TAB PO SCH (09:24)
[2021-01-21] MEDS: Furosemide 20 MG TAB PO SCH (09:24)
[2021-01-21] MEDS: Senokot S 8.6-50 MG TAB PO SCH ×2 (09:24→20:13)
[2021-01-21] MEDS: Aspirin 81 mg Enteric Coated Tablet PO SCH ×2 (09:24→20:13)
[2021-01-21] MEDS: Ferrous Gluconate 324 MG TAB PO SCH ×2 (09:24→17:55)
[2021-01-21] MEDS: Valsartan 80 MG TAB PO SCH (09:26)
[2021-01-21] MEDS: Hydrochlorothiazide 25 MG TAB PO SCH (09:26)
[2021-01-21] MEDS: diphenhydrAMINE 25 MG CAP PO PRN ×3 (11:06→20:11)
[2021-01-21] MEDS: Atorvastatin Calcium 20 MG TAB PO SCH (20:15)
[2021-01-22] MEDS: HYDROcodone/Acetaminophen 5/325 mg Tablet PO PRN ×4 (00:05→13:00)
[2021-01-22] MEDS: Ketorolac Tromethamine 30 MG/ML VIAL IVP SCH ×3 (00:05→11:23)
[2021-01-22] MEDS: diphenhydrAMINE 25 MG CAP PO PRN ×3 (00:05→11:23)
[2021-01-22] MEDS: Fentanyl 5 mcg/Bup 0.075% Cadd 100 ML EPIDURAL SCH (05:02)
[2021-01-22] MEDS: Levothyroxine Sodium 50 MCG TAB PO SCH (05:02)
[2021-01-22 06:38] LABS: Hemoglobin 9.4 g/dL (12.0-16.0); Mean Corpuscular HGB CONC 33.1 g/dL (32.0-36.0); Mean Corpuscular Hemoglobin 30.8 pg (27.0-31.0); Mean Platelet Volume 8.3 fL (7.4-10.4); Platelet Count 216 thou/uL (130-400); RBC Distribution Width 13.9 % (11.5-14.5); Red Blood Cell (RBC) Count 3.05 mill/uL (4.20-5.40)
[2021-01-22] MEDS: Multivitamin W/ Minerals 1 TAB PO SCH (08:14)
[2021-01-22] MEDS: Senokot S 8.6-50 MG TAB PO SCH ×2 (08:14→20:33)
[2021-01-22] MEDS: Aspirin 81 mg Enteric Coated Tablet PO SCH ×2 (08:14→20:33)
[2021-01-22] MEDS: Ferrous Gluconate 324 MG TAB PO SCH ×2 (08:14→17:39)
[2021-01-22] MEDS: Valsartan 80 MG TAB PO SCH (08:15)
[2021-01-22] MEDS: Hydrochlorothiazide 25 MG TAB PO SCH (08:15)
[2021-01-22] MEDS: Furosemide 20 MG TAB PO SCH (08:15)
[2021-01-22] MEDS: traMADol HCl 50 MG TAB PO PRN (15:00)
[2021-01-22] MEDS ORDERED: HYDROcodone/Acetaminophen 10/325 mg Tablet PO PRN (15:28)
[2021-01-22] MEDS: HYDROcodone/Acetaminophen 10/325 mg Tablet PO PRN ×2 (17:38→22:55)
[2021-01-22] MEDS: Atorvastatin Calcium 20 MG TAB PO SCH (20:33)
[2021-01-23] MEDS: HYDROcodone/Acetaminophen 10/325 mg Tablet PO PRN (03:13)
[2021-01-23] MEDS: diphenhydrAMINE 25 MG CAP PO PRN ×2 (03:15→08:52)
[2021-01-23] MEDS: Levothyroxine Sodium 50 MCG TAB PO SCH (05:08)
[2021-01-23 06:01] LABS: Hemoglobin 9.9 g/dL (12.0-16.0); Mean Corpuscular HGB CONC 33.4 g/dL (32.0-36.0); Mean Corpuscular Hemoglobin 31.1 pg (27.0-31.0); Mean Platelet Volume 8.4 fL (7.4-10.4); Platelet Count 243 thou/uL (130-400); RBC Distribution Width 13.9 % (11.5-14.5); Red Blood Cell (RBC) Count 3.19 mill/uL (4.20-5.40); White Blood Cell (WBC) Count 12.1 thou/uL (4.8-10.8)
[2021-01-23] MEDS: Multivitamin W/ Minerals 1 TAB PO SCH (08:53)
[2021-01-23] MEDS: Senokot S 8.6-50 MG TAB PO SCH (08:53)
[2021-01-23] MEDS: Ferrous Gluconate 324 MG TAB PO SCH (08:53)
[2021-01-23] MEDS: Aspirin 81 mg Enteric Coated Tablet PO SCH (08:54)
[2021-01-23] MEDS: Furosemide 20 MG TAB PO SCH (08:56)
[2021-01-23] MEDS: Hydrochlorothiazide 25 MG TAB PO SCH (08:56)
[2021-01-23] MEDS: Valsartan 80 MG TAB PO SCH (08:57)
[2021-01-23] MEDS ORDERED: Ondansetron ODT 4 MG TAB PO PRN (09:48)
[2021-01-23] MEDS: traMADol HCl 50 MG TAB PO PRN (10:30)
[2021-01-23 11:37] VITALS: BP 128/73; TEMP 98.6
== END 2021-01-23 12:09 | disposition home or self-care (01) | DRG 470 ==
LOC: SURG A 01-20 10:18 → SURG B 01-20 18:22
PROVIDERS: ADMIT Orthopaedic Surgery; ATTEND Orthopaedic Surgery
PROC: 0SR9049 Replacement of Right Hip Joint with Ceramic on Polyethylene Synthetic Substitute, Cemented, Open Approach (ICD-10-PCS; principal; 2021-01-20)
DX: M87.851 Other osteonecrosis, right femur (principal); D62 Acute posthemorrhagic anemia; M87.852 Other osteonecrosis, left femur; Z20.822 Contact with and (suspected) exposure to COVID-19; E78.5 Hyperlipidemia, unspecified; E03.9 Hypothyroidism, unspecified; Z90.49 Acquired absence of other specified parts of digestive tract; Z90.710 Acquired absence of both cervix and uterus; Z79.899 Other long term (current) drug therapy; Z79.82 Long term (current) use of aspirin; Z79.890 Hormone replacement therapy; Z86.16 Personal history of COVID-19; Z87.891 Personal history of nicotine dependence
CPT/HCPCS: 36415; 36416; 85027; C1713; J0690; J1100; J1170; J1200; J1885; J2001; J2405; J2550; J2704; J3010; J3490; Q0163; S0020

== ENCOUNTER 2021-06-12 08:11 | Outpatient (CLI) | payer BC ==
[2021-06-12] MEDS ORDERED: Magnevist 469MG/ML 20 ML VIAL ONE ×2 (12:11)
== END 2021-06-12 08:12 | disposition home or self-care (01) ==
LOC: BICMRI 08:11
PROVIDERS: ATTEND Surgery
DX: M54.16 Radiculopathy, lumbar region (principal); M79.606 Pain in leg, unspecified; M25.559 Pain in unspecified hip; Z98.890 Other specified postprocedural states; M43.16 Spondylolisthesis, lumbar region; M47.816 Spondylosis without myelopathy or radiculopathy, lumbar region; M48.061 Spinal stenosis, lumbar region without neurogenic claudication; Z96.641 Presence of right artificial hip joint; M87.9 Osteonecrosis, unspecified; G95.19 Other vascular myelopathies
CPT/HCPCS: 72158; 72197; A9579

== ENCOUNTER 2022-03-12 13:54 | Outpatient (CLI) | payer BC | END 2022-03-12 13:55 | disposition home or self-care (01) | LOC: TBSIIMAG 13:54 | PROVIDERS: ATTEND Surgery | DX: M47.26 Other spondylosis with radiculopathy, lumbar region (principal); M48.061 Spinal stenosis, lumbar region without neurogenic claudication; L90.5 Scar conditions and fibrosis of skin | CPT/HCPCS: 72148 ==

== ENCOUNTER 2022-05-15 15:00 | Inpatient (IN) | payer BC ==
[2022-05-15 16:08] LABS: #Eosinphils 0.1 thou/uL (0.0-0.7); #Lymphocytes 1.5 thou/uL (1.20-3.40); #Monocytes 0.7 thou/uL (0.11-0.59); #Neutrophils 4.7 thou/uL (1.40-6.50); %Basophils 0.2 % (0.0-1.0); %Eosinophils 1.7 % (0.0-10.0); %Lymphocytes 20.8 % (21.0-51.0); %Neutrophils 67.4 % (42.0-75.0); Hemoglobin 11.8 g/dL (12.0-16.0); Mean Corpuscular HGB CONC 32.9 g/dL (32.0-36.0); Mean Corpuscular Hemoglobin 29.4 pg (27.0-31.0); Mean Corpuscular Volume 89.5 fL (78.0-98.0); Mean Platelet Volume 8.4 fL (7.4-10.4); Platelet Count 226 thou/uL (130-400); RBC Distribution Width 14.5 % (11.5-14.5); Red Blood Cell (RBC) Count 4.01 mill/uL (4.20-5.40)
[2022-05-15 16:24] LABS: ALT (SGPT) 29 U/L (8-55); AST (SGOT) 16 U/L (5-34); Albumin 4.1 g/dL (3.4-4.8); Alkaline Phosphatase 105 U/L (40-110); Anion Gap 15 mmol/L (10-20); BUN (Urea Nitrogen) 24 mg/dL (9.8-20.1); Bilirubin, Total 0.4 mg/dL (0.2-1.2); Calc. Creatinine Clearance 0 mL/min (70-130); Calcium 9.3 mg/dL (7.8-10.44); Carbon Dioxide 26 mmol/L (23-31); Chloride 102 mmol/L (98-107); Estimated GFR 54; Globulin 2.6 g/dL (2.4-3.5); Glucose 133 mg/dL (80-115); Potassium 3.9 mmol/L (3.5-5.1); Protein, Total 6.7 g/dL (5.8-8.1); Sodium 139 mmol/L (136-145)
[2022-05-15 17:13] LABS: Bacteria/HPF None Seen HPF (None Seen); Bilirubin Negative (Negative); Blood, Urine Negative (Negative); Clarity Clear (Clear); Glucose, Urine (Dipstick) Normal (Negative); Ketone, Urine Negative (Negative); Leukocyte 25 Leu/uL (Negative); Nitrite Negative (Negative); Protein, Urine (Dipstick) Negative (Neg-Trace); RBC/HPF 0-3 HPF (0-3); Specific Gravity, Urine 1.007 (1.002-1.036); Squamous Epithelial 0-3 HPF (0-3); Urobilinogen Normal mg/dL (Less than 2); WBC/HPF 0-3 HPF (0-3)
[2022-05-15] MEDS ORDERED: Morphine 4 MG/ML VIAL ONE (17:59)
[2022-05-15] MEDS ORDERED: traMADol HCl 50 MG TAB PO PRN ×2 (18:17)
[2022-05-15] MEDS ORDERED: Acetaminophen 325 MG TAB PO PRN (18:17)
[2022-05-15] MEDS ORDERED: diphenhydrAMINE 25 MG CAP PO PRN (18:17)
[2022-05-15] MEDS ORDERED: Ondansetron PF 4 MG/2 ML Vial IVP PRN (18:17)
[2022-05-15] MEDS ORDERED: Ketorolac Tromethamine 30 MG/ML VIAL IVP PRN (18:17)
[2022-05-15] MEDS ORDERED: Polyethylene Glycol 3350 17 GM Packet PO PRN (18:25)
[2022-05-15 20:37] VITALS: BMI 32.0
[2022-05-15] MEDS: Dexamethasone 4 MG TAB PO SCH (21:19)
[2022-05-15] MEDS: HYDROcodone/Acetaminophen 7.5/325 mg Tablet PO PRN (21:19)
[2022-05-15] MEDS: Sodium Chloride 0.9% 1,000 ML IV SCH (21:22)
[2022-05-15 23:37] LABS: SARS-CoV-2 NAA Rapid Test Not Detected (NotDetected)
[2022-05-15] MEDS: Morphine 2 MG/ML VIAL SLOW IVP PRN (23:50)
[2022-05-16] MEDS: Dexamethasone 4 MG TAB PO SCH ×4 (03:42→20:27)
[2022-05-16] MEDS: Morphine 2 MG/ML VIAL SLOW IVP PRN ×2 (03:45→17:14)
[2022-05-16] MEDS ORDERED: Bacitracin Zinc Ointment 30 gm TUBE ONE (07:27)
[2022-05-16] MEDS ORDERED: Thrombin 5000 UNITS/5 ML VIAL ONE (07:27)
[2022-05-16] MEDS ORDERED: fentaNYL Citrate/PF 100 MCG/2 ML SYRINGE ONE ×2 (07:52→11:41)
[2022-05-16] MEDS ORDERED: CEFAZOLIN 2 GM VIAL ONE (08:05)
[2022-05-16] MEDS ORDERED: Sodium Chloride 0.9% 100 ML ONE (08:07)
[2022-05-16] MEDS ORDERED: Lidocaine 1% MPF 2 ML VIAL ONE (08:20)
[2022-05-16] MEDS ORDERED: Dexamethasone 20 MG/5 ML VIAL ONE (08:20)
[2022-05-16] MEDS ORDERED: Ondansetron PF 4 MG/2 ML Vial ONE (08:20)
[2022-05-16] MEDS ORDERED: PROPOFOL 200 MG/20 ML VIAL ONE (08:20)
[2022-05-16] MEDS ORDERED: NEOSTIGMINE 3 MG/3 ML SYR 3 MG/3 ML SYRINGE ONE (08:20)
[2022-05-16] MEDS ORDERED: Glycopyrrolate 0.2 MG/ML 5 ML SYRINGE ONE (08:20)
[2022-05-16] MEDS ORDERED: Rocuronium Bromide 10 MG/ML (10ML VIAL) ONE (08:20)
[2022-05-16] MEDS: Sodium Chloride 0.9% 1,000 ML IV SCH ×2 (10:04→21:10)
[2022-05-16] MEDS ORDERED: Ondansetron ODT 4 MG TAB PO PRN (10:46)
[2022-05-16] MEDS ORDERED: hydrALAZINE 20 MG/ML VIAL SLOW IVP PRN (10:47)
[2022-05-16] MEDS ORDERED: Fentanyl 100 MCG/2 ML VIAL ONE ×2 (10:50→11:04)
[2022-05-16] MEDS ORDERED: Ondansetron HCl/PF 4 MG/2 ML Vial IVP PRN ×2 (10:54→10:55)
[2022-05-16] MEDS ORDERED: Promethazine HCl 25 MG/ML VIAL IM PRN ×2 (10:54→10:55)
[2022-05-16] MEDS ORDERED: Promethazine HCl 25 MG/ML VIAL IVPB PRN ×2 (10:54→10:55)
[2022-05-16] MEDS ORDERED: HYDROmorphone 2 MG/ML VIAL SLOW IVP PRN ×2 (10:54→10:55)
[2022-05-16] MEDS ORDERED: HYDROmorphone 0.5 MG/0.5 ML SYRINGE ONE ×4 (10:55→11:40)
[2022-05-16] MEDS ORDERED: tiZANidine HCl 4 MG TAB ONE (12:07)
[2022-05-16] MEDS: Pregabalin 75 MG CAP PO SCH ×2 (13:30→20:32)
[2022-05-16] MEDS: HYDROcodone/Acetaminophen 7.5/325 mg Tablet PO PRN ×2 (13:31→20:32)
[2022-05-16] MEDS: CEFAZOLIN 2 GM in Sodium Chloride 0.9% 100 ML IVPB SCH (13:32)
[2022-05-16] MEDS: Acetaminophen/Codeine 30-300mg Tablet PO PRN (17:13)
[2022-05-16] MEDS: Docusate 100 MG CAP PO SCH (20:27)
[2022-05-16] MEDS: Atorvastatin Calcium 20 MG TAB PO SCH (20:27)
[2022-05-16] MEDS: CeleCOXIB 100 MG CAP PO SCH (20:31)
[2022-05-16] MEDS: tiZANidine HCl 4 MG TAB PO PRN (20:33)
[2022-05-17] MEDS: CEFAZOLIN 2 GM in Sodium Chloride 0.9% 100 ML IVPB SCH (00:51)
[2022-05-17] MEDS: HYDROcodone/Acetaminophen 7.5/325 mg Tablet PO PRN ×3 (03:30→20:50)
[2022-05-17] MEDS: Dexamethasone 4 MG TAB PO SCH ×4 (03:30→20:44)
[2022-05-17] MEDS: Levothyroxine Sodium 50 MCG TAB PO SCH (05:25)
[2022-05-17] MEDS: Pregabalin 75 MG CAP PO SCH (07:58)
[2022-05-17] MEDS: tiZANidine HCl 4 MG TAB PO PRN ×2 (07:58→16:03)
[2022-05-17] MEDS: Docusate 100 MG CAP PO SCH ×2 (07:59→20:43)
[2022-05-17] MEDS: Hydrochlorothiazide 25 MG TAB PO SCH (07:59)
[2022-05-17] MEDS: CeleCOXIB 100 MG CAP PO SCH ×2 (07:59→20:42)
[2022-05-17] MEDS: Furosemide 20 MG TAB PO SCH (07:59)
[2022-05-17] MEDS: Valsartan 80 MG TAB PO SCH (07:59)
[2022-05-17] MEDS: Pregabalin 50 MG CAP PO SCH ×3 (09:10→20:45)
[2022-05-17] MEDS: Sodium Chloride 0.9% 1,000 ML IV SCH (11:14)
[2022-05-17] MEDS: Acetaminophen/Codeine 30-300mg Tablet PO PRN ×3 (13:08→23:51)
[2022-05-17] MEDS: Atorvastatin Calcium 20 MG TAB PO SCH (22:28)
[2022-05-18] MEDS: Morphine 2 MG/ML VIAL SLOW IVP PRN (01:13)
[2022-05-18] MEDS: Sodium Chloride 0.9% 1,000 ML IV SCH ×2 (01:21→18:03)
[2022-05-18] MEDS: Dexamethasone 4 MG TAB PO SCH ×4 (03:07→21:00)
[2022-05-18] MEDS: HYDROcodone/Acetaminophen 7.5/325 mg Tablet PO PRN ×3 (03:27→18:54)
[2022-05-18] MEDS: Levothyroxine Sodium 50 MCG TAB PO SCH (06:03)
[2022-05-18] MEDS: Acetaminophen/Codeine 30-300mg Tablet PO PRN ×3 (06:03→20:32)
[2022-05-18] MEDS: Docusate 100 MG CAP PO SCH ×2 (08:55→21:00)
[2022-05-18] MEDS: Valsartan 80 MG TAB PO SCH (08:55)
[2022-05-18] MEDS: CeleCOXIB 100 MG CAP PO SCH ×2 (08:55→21:00)
[2022-05-18] MEDS: Furosemide 20 MG TAB PO SCH (08:55)
[2022-05-18] MEDS: Hydrochlorothiazide 25 MG TAB PO SCH (08:55)
[2022-05-18] MEDS: Pregabalin 50 MG CAP PO SCH ×3 (09:01→20:29)
[2022-05-18] MEDS ORDERED: Ketorolac Tromethamine 30 MG/ML VIAL IVP SCH (10:15)
[2022-05-18] MEDS ORDERED: Bupivacaine 0.25% 10 ML VIAL ONE (10:29)
[2022-05-18] MEDS ORDERED: Lidocaine 2% PF 5 ML VIAL ONE (10:29)
[2022-05-18] MEDS ORDERED: methylPREDNISolone Acetate 40 mg/ml Vial ONE (10:29)
[2022-05-18 14:34] LABS: Anion Gap 16 mmol/L (10-20); BUN (Urea Nitrogen) 42 mg/dL (9.8-20.1); Calc. Creatinine Clearance 55 mL/min (70-130); Calcium 9.3 mg/dL (7.8-10.44); Carbon Dioxide 24 mmol/L (23-31); Chloride 105 mmol/L (98-107); Estimated GFR 41; Glucose 114 mg/dL (80-115); Potassium 4.5 mmol/L (3.5-5.1); Sodium 140 mmol/L (136-145)
[2022-05-18] MEDS: Atorvastatin Calcium 20 MG TAB PO SCH (21:01)
[2022-05-19] MEDS: HYDROcodone/Acetaminophen 7.5/325 mg Tablet PO PRN ×3 (02:41→16:03)
[2022-05-19] MEDS: Dexamethasone 4 MG TAB PO SCH ×2 (04:48→08:12)
[2022-05-19] MEDS: tiZANidine HCl 4 MG TAB PO PRN ×3 (04:48→20:49)
[2022-05-19] MEDS: Sodium Chloride 0.9% 1,000 ML IV SCH ×2 (05:01→13:54)
[2022-05-19] MEDS: Acetaminophen/Codeine 30-300mg Tablet PO PRN ×4 (06:02→22:44)
[2022-05-19] MEDS: Levothyroxine Sodium 50 MCG TAB PO SCH (06:03)
[2022-05-19] MEDS: CeleCOXIB 100 MG CAP PO SCH ×2 (08:10→20:49)
[2022-05-19] MEDS: Pregabalin 50 MG CAP PO SCH ×3 (08:12→20:06)
[2022-05-19] MEDS: Furosemide 20 MG TAB PO SCH (08:12)
[2022-05-19] MEDS: Docusate 100 MG CAP PO SCH ×2 (08:12→20:50)
[2022-05-19] MEDS: Hydrochlorothiazide 25 MG TAB PO SCH (08:12)
[2022-05-19] MEDS: Morphine 2 MG/ML VIAL SLOW IVP PRN (08:12)
[2022-05-19] MEDS: Valsartan 80 MG TAB PO SCH (08:12)
[2022-05-19] MEDS ORDERED: CEFAZOLIN 2 GM in Sodium Chloride 0.9% 100 ML IVPB SCH (08:15)
[2022-05-19] MEDS: Atorvastatin Calcium 20 MG TAB PO SCH (20:50)
[2022-05-20] MEDS: HYDROcodone/Acetaminophen 7.5/325 mg Tablet PO PRN (01:32)
[2022-05-20] MEDS: Sodium Chloride 0.9% 1,000 ML IV SCH ×2 (04:57→19:19)
[2022-05-20] MEDS: Levothyroxine Sodium 50 MCG TAB PO SCH (05:09)
[2022-05-20] MEDS: Morphine 2 MG/ML VIAL SLOW IVP PRN ×2 (05:09→08:04)
[2022-05-20] MEDS ORDERED: Vancomycin 1.5 GRAM/300 ML BAG 1.5 GM in Premix Bag 1 BAG IVPB SCH (09:00)
[2022-05-20] MEDS ORDERED: Bupivacaine PF 0.5% 30 ML VIAL ONE (10:02)
[2022-05-20] MEDS ORDERED: fentaNYL Citrate/PF 100 MCG/2 ML SYRINGE ONE (10:08)
[2022-05-20 10:11] LABS: Hemoglobin 12.1 g/dL (12.0-16.0); Mean Corpuscular HGB CONC 31.5 g/dL (32.0-36.0); Mean Corpuscular Hemoglobin 28.9 pg (27.0-31.0); Mean Corpuscular Volume 91.6 fL (78.0-98.0); Mean Platelet Volume 8.6 fL (7.4-10.4); Platelet Count 238 thou/uL (130-400); RBC Distribution Width 14.7 % (11.5-14.5); Red Blood Cell (RBC) Count 4.18 mill/uL (4.20-5.40)
[2022-05-20] MEDS ORDERED: CEFAZOLIN 2 GM VIAL ONE (10:12)
[2022-05-20] MEDS ORDERED: Sodium Chloride 0.9% 100 ML ONE ×2 (10:12→10:17)
[2022-05-20] MEDS ORDERED: Tranexamic Acid 1,000 MG/10 ML VIAL ONE (10:17)
[2022-05-20] MEDS ORDERED: Phenylephrine 10 MG/ML VIAL ONE (10:18)
[2022-05-20] MEDS ORDERED: ePHEDrine 50 MG/ML VIAL ONE (10:18)
[2022-05-20] MEDS ORDERED: Dexamethasone 20 MG/5 ML VIAL ONE (10:18)
[2022-05-20] MEDS ORDERED: PROPOFOL 200 MG/20 ML VIAL ONE (10:18)
[2022-05-20] MEDS ORDERED: Rocuronium Bromide 10 MG/ML (10ML VIAL) ONE (10:18)
[2022-05-20] MEDS: CeleCOXIB 100 MG CAP PO SCH ×2 (10:19→21:18)
[2022-05-20] MEDS: Valsartan 80 MG TAB PO SCH (10:19)
[2022-05-20] MEDS: Pregabalin 50 MG CAP PO SCH ×3 (10:19→21:17)
[2022-05-20] MEDS: Hydrochlorothiazide 25 MG TAB PO SCH (10:19)
[2022-05-20] MEDS: Docusate 100 MG CAP PO SCH ×2 (10:19→21:17)
[2022-05-20] MEDS: Furosemide 20 MG TAB PO SCH (10:19)
[2022-05-20 10:24] LABS: Anion Gap 16 mmol/L (10-20); BUN (Urea Nitrogen) 40 mg/dL (9.8-20.1); Calc. Creatinine Clearance 80 mL/min (70-130); Calcium 9.2 mg/dL (7.8-10.44); Carbon Dioxide 24 mmol/L (23-31); Chloride 103 mmol/L (98-107); Estimated GFR 64; Glucose 76 mg/dL (80-115); Potassium 4.6 mmol/L (3.5-5.1); Sodium 138 mmol/L (136-145)
[2022-05-20] MEDS ORDERED: HYDROmorphone 2 MG/ML VIAL ONE (11:12)
[2022-05-20] MEDS ORDERED: Ondansetron HCl/PF 4 MG/2 ML Vial IVP PRN (11:48)
[2022-05-20] MEDS ORDERED: HYDROmorphone 2 MG/ML VIAL SLOW IVP PRN (11:48)
[2022-05-20] MEDS ORDERED: SUGAMMADEX SODIUM 200 MG/2 ML VIAL ONE (11:51)
[2022-05-20] MEDS ORDERED: Zolpidem Tartrate 5 MG TAB PO PRN ×2 (11:55→12:07)
[2022-05-20] MEDS ORDERED: diphenhydrAMINE 25 MG CAP PO PRN ×2 (11:55→12:07)
[2022-05-20] MEDS ORDERED: Ondansetron PF 4 MG/2 ML Vial IVP PRN ×2 (11:55→12:07)
[2022-05-20] MEDS ORDERED: Promethazine HCl 25 MG/ML VIAL IM PRN ×2 (11:55→12:07)
[2022-05-20] MEDS ORDERED: HYDROcodone/Acetaminophen 10/325 mg Tablet PO PRN ×2 (11:55)
[2022-05-20] MEDS ORDERED: Acetaminophen 325 MG TAB PO PRN (11:55)
[2022-05-20] MEDS ORDERED: Fentanyl 100 MCG/2 ML VIAL ONE ×2 (12:02→12:46)
[2022-05-20] MEDS ORDERED: diphenhydrAMINE 50 MG/ML VIAL IVP PRN (12:07)
[2022-05-20] MEDS ORDERED: diphenhydrAMINE 50 MG/ML VIAL IM PRN (12:07)
[2022-05-20] MEDS ORDERED: Naloxone HCl 0.4 mg/ml Vial IV PRN (12:07)
[2022-05-20] MEDS ORDERED: fentaNYL Citrate/PF 2,000 MCG in Sodium Chloride 0.9% 60 ML IV PRN (12:07)
[2022-05-20] MEDS ORDERED: HYDROmorphone 0.5 MG/0.5 ML SYRINGE ONE ×4 (12:11→12:40)
[2022-05-20] MEDS ORDERED: Communication Order-Pharmacy FS SCH (12:15)
[2022-05-20] MEDS: CEFAZOLIN 2 GM in Sodium Chloride 0.9% 100 ML IVPB SCH (17:50)
[2022-05-20] MEDS: Aspirin 81 mg Enteric Coated Tablet PO SCH (21:17)
[2022-05-20] MEDS: Atorvastatin Calcium 20 MG TAB PO SCH (21:17)
[2022-05-20] MEDS: Ferrous Gluconate 324 MG TAB PO SCH (21:17)
[2022-05-20] MEDS: Senokot S 8.6-50 MG TAB PO SCH (21:17)
[2022-05-20] MEDS: tiZANidine HCl 4 MG TAB PO PRN (22:49)
[2022-05-21] MEDS: CEFAZOLIN 2 GM in Sodium Chloride 0.9% 100 ML IVPB SCH (01:48)
[2022-05-21] MEDS: Levothyroxine Sodium 50 MCG TAB PO SCH (04:42)
[2022-05-21] MEDS: Acetaminophen/Codeine 30-300mg Tablet PO PRN (04:42)
[2022-05-21 05:37] LABS: Hemoglobin 11.7 g/dL (12.0-16.0); Mean Corpuscular HGB CONC 31.2 g/dL (32.0-36.0); Mean Corpuscular Hemoglobin 28.6 pg (27.0-31.0); Mean Corpuscular Volume 91.5 fL (78.0-98.0); Mean Platelet Volume 8.7 fL (7.4-10.4); Platelet Count 220 thou/uL (130-400); RBC Distribution Width 14.7 % (11.5-14.5); Red Blood Cell (RBC) Count 4.08 mill/uL (4.20-5.40); White Blood Cell (WBC) Count 17.6 thou/uL (4.8-10.8)
[2022-05-21] MEDS: Sodium Chloride 0.9% 1,000 ML IV SCH ×2 (07:50→21:43)
[2022-05-21] MEDS: Docusate 100 MG CAP PO SCH ×2 (08:19→20:24)
[2022-05-21] MEDS: tiZANidine HCl 4 MG TAB PO PRN ×2 (08:19→17:40)
[2022-05-21] MEDS: Furosemide 20 MG TAB PO SCH (08:19)
[2022-05-21] MEDS: Senokot S 8.6-50 MG TAB PO SCH ×2 (08:19→20:24)
[2022-05-21] MEDS: Multivitamin W/ Minerals 1 TAB PO SCH (08:20)
[2022-05-21] MEDS: Ferrous Gluconate 324 MG TAB PO SCH ×2 (08:20→20:24)
[2022-05-21] MEDS: Aspirin 81 mg Enteric Coated Tablet PO SCH ×2 (08:20→20:24)
[2022-05-21] MEDS: Valsartan 80 MG TAB PO SCH (08:20)
[2022-05-21] MEDS: Hydrochlorothiazide 25 MG TAB PO SCH (08:20)
[2022-05-21] MEDS: CeleCOXIB 100 MG CAP PO SCH ×2 (08:21→20:24)
[2022-05-21] MEDS: Pregabalin 50 MG CAP PO SCH ×3 (08:22→21:42)
[2022-05-21] MEDS ORDERED: Sodium Chloride 0.9% 500 ML IV SCH (12:00)
[2022-05-21] MEDS: Mag-Al 1200 mg/1200 mg/30 ML UDCUP PO PRN ×2 (12:23→20:24)
[2022-05-21 12:57] LABS: Troponin I Less than 0.010 ng/mL (< 0.028)
[2022-05-21] MEDS: Atorvastatin Calcium 20 MG TAB PO SCH (20:24)
[2022-05-22] MEDS: tiZANidine HCl 4 MG TAB PO PRN ×2 (00:32→13:21)
[2022-05-22] MEDS: Levothyroxine Sodium 50 MCG TAB PO SCH (04:59)
[2022-05-22] MEDS: Acetaminophen/Codeine 30-300mg Tablet PO PRN (05:01)
[2022-05-22 06:54] LABS: Anion Gap 12 mmol/L (10-20); BUN (Urea Nitrogen) 38 mg/dL (9.8-20.1); Calc. Creatinine Clearance 79 mL/min (70-130); Calcium 8.3 mg/dL (7.8-10.44); Carbon Dioxide 26 mmol/L (23-31); Chloride 100 mmol/L (98-107); Estimated GFR 64; Glucose 115 mg/dL (80-115); Magnesium 2.1 mg/dL (1.6-2.6); Potassium 4.5 mmol/L (3.5-5.1); Sodium 133 mmol/L (136-145)
[2022-05-22] MEDS ORDERED: traMADol HCl 50 MG TAB PO PRN ×2 (07:43)
[2022-05-22] MEDS ORDERED: HYDROcodone/Acetaminophen 10/325 mg Tablet PO PRN (07:43)
[2022-05-22 09:18] LABS: Band 3 % (5-11); Eosinophils 2 % (0-10); Hemoglobin 10.6 g/dL (12.0-16.0); Hypochromia SLIGHT = 6-15 cells (100X) (0-5/hpf); Lymphocytes 4 % (21-51); MDiff Complete? YES; Mean Corpuscular HGB CONC 32.3 g/dL (32.0-36.0); Mean Corpuscular Hemoglobin 29.4 pg (27.0-31.0); Mean Corpuscular Volume 91.1 fL (78.0-98.0); Mean Platelet Volume 8.9 fL (7.4-10.4); Metamyelocyte 2 % (0-0); Monocytes 7 % (0-10); Myelocyte 1 % (0-0); Neutrophil 79 % (42-75); Nucleated RBC 1 % (0); Platelet Count 213 thou/uL (130-400); Platelet Morphology Comment Appears Adequate; RBC Distribution Width 14.6 % (11.5-14.5); Reactive Lymphocytes 2 % (0-10); Red Blood Cell (RBC) Count 3.61 mill/uL (4.20-5.40); Target Cells SLIGHT = 2-5 cells (100X) (0-1/hpf); White Blood Cell (WBC) Count 16.1 thou/uL (4.8-10.8)
[2022-05-22] MEDS: CeleCOXIB 100 MG CAP PO SCH ×2 (09:39→22:00)
[2022-05-22] MEDS: Multivitamin W/ Minerals 1 TAB PO SCH (09:40)
[2022-05-22] MEDS: Docusate 100 MG CAP PO SCH ×2 (09:40→20:49)
[2022-05-22] MEDS: Ferrous Gluconate 324 MG TAB PO SCH ×2 (09:40→20:49)
[2022-05-22] MEDS: Senokot S 8.6-50 MG TAB PO SCH ×2 (09:40→20:52)
[2022-05-22] MEDS: Aspirin 81 mg Enteric Coated Tablet PO SCH ×2 (09:40→20:49)
[2022-05-22] MEDS: Pregabalin 50 MG CAP PO SCH ×3 (09:41→22:00)
[2022-05-22] MEDS: Valsartan 80 MG TAB PO SCH (09:41)
[2022-05-22] MEDS: Sodium Chloride 0.9% 1,000 ML IV SCH ×2 (12:02→23:43)
[2022-05-22] MEDS: HYDROcodone/Acetaminophen 10/325 mg Tablet PO PRN ×2 (14:18→23:49)
[2022-05-22] MEDS: Atorvastatin Calcium 20 MG TAB PO SCH (20:49)
[2022-05-23] MEDS: HYDROcodone/Acetaminophen 10/325 mg Tablet PO PRN ×2 (04:35→09:20)
[2022-05-23] MEDS: Levothyroxine Sodium 50 MCG TAB PO SCH (04:52)
[2022-05-23] MEDS ORDERED: Sodium Chloride 0.9% 500 ML IV SCH (08:15)
[2022-05-23] MEDS: CeleCOXIB 100 MG CAP PO SCH (09:19)
[2022-05-23] MEDS: Senokot S 8.6-50 MG TAB PO SCH (09:19)
[2022-05-23] MEDS: Multivitamin W/ Minerals 1 TAB PO SCH (09:19)
[2022-05-23] MEDS: Aspirin 81 mg Enteric Coated Tablet PO SCH (09:20)
[2022-05-23] MEDS: Ferrous Gluconate 324 MG TAB PO SCH (09:20)
[2022-05-23] MEDS: Docusate 100 MG CAP PO SCH (09:21)
[2022-05-23] MEDS: Pregabalin 50 MG CAP PO SCH (09:21)
[2022-05-23 09:35] VITALS: TEMP 98.3
[2022-05-23 10:21] VITALS: BP 101/61
== END 2022-05-23 12:09 | DRG 470 ==
LOC: ERS 15:00 → MSONC 18:27 → OBSVTOIN 05-16 10:44 → SURG A 05-16 12:51
PROVIDERS: ADMIT Surgery; ATTEND Surgery
PROC: 01NB0ZZ Release Lumbar Nerve, Open Approach (ICD-10-PCS; 2022-05-16)
PROC: 0SRB039 Replacement of Left Hip Joint with Ceramic Synthetic Substitute, Cemented, Open Approach (ICD-10-PCS; principal; 2022-05-20)
DX: M87.852 Other osteonecrosis, left femur (principal); M48.061 Spinal stenosis, lumbar region without neurogenic claudication; M54.16 Radiculopathy, lumbar region; I10 Essential (primary) hypertension; E78.5 Hyperlipidemia, unspecified; E03.9 Hypothyroidism, unspecified; Z96.641 Presence of right artificial hip joint; G89.29 Other chronic pain; K21.9 Gastro-esophageal reflux disease without esophagitis; I95.2 Hypotension due to drugs; T46.5X5A Adverse effect of other antihypertensive drugs, initial encounter; T50.2X5A Adverse effect of carbonic-anhydrase inhibitors, benzothiadiazides and other diuretics, initial encounter; Z79.899 Other long term (current) drug therapy; Z79.82 Long term (current) use of aspirin; Z79.890 Hormone replacement therapy; Z98.890 Other specified postprocedural states; Z87.891 Personal history of nicotine dependence; Z82.49 Family history of ischemic heart disease and other diseases of the circulatory system
CPT/HCPCS: 36415; 71045; 76000; 80048; 81003; 81015; 83735; 83880; 84484; 85025; 85027; 85610; 85730; 87811; 93005; 93010; 93970; 96374; 96375; 96376; C1776; G0378; J0690; J1100; J1170; J1885; J2001; J2270; J2370; J2405; J2704; J2920; J3010; J3370; J3490; J7030; J7050; J8540; S0020; U0002

== ENCOUNTER 2022-08-17 07:33 | Outpatient (CLI) | payer BC | END 2022-08-17 07:34 | disposition home or self-care (01) | LOC: RAD 07:33 | PROVIDERS: ATTEND Surgery | DX: K57.32 Diverticulitis of large intestine without perforation or abscess without bleeding (principal); K82.8 Other specified diseases of gallbladder | CPT/HCPCS: 74280 ==

== ENCOUNTER 2022-08-26 09:30 | Inpatient (IN) | payer BC ==
[2022-08-31 10:21] VITALS: BMI 32.8
[2022-09-02 07:48] LABS: SARS-CoV-2 NAA Rapid Test Not Detected (NotDetected)
[2022-09-02] MEDS ORDERED: Bupivacaine/Epinephrine 0.25% 30 ML VIAL ONE (08:15)
[2022-09-02] MEDS ORDERED: Lidocaine 1% (PF) 30 ML VIAL ONE (08:15)
[2022-09-02] MEDS ORDERED: EPINEPHrine 1 MG/ML AMP ONE (08:15)
[2022-09-02] MEDS ORDERED: Sodium Chloride 0.9% 100 ML ONE (08:30)
[2022-09-02] MEDS ORDERED: cefOXitin 2 GM VIAL ONE (08:30)
[2022-09-02] MEDS ORDERED: Midazolam HCl 2 mg/2 ml Vial ONE (08:38)
[2022-09-02] MEDS ORDERED: Bupivacaine PF 0.5% 30 ML VIAL ONE (08:38)
[2022-09-02] MEDS ORDERED: Fentanyl 100 MCG/2 ML VIAL ONE (08:38)
[2022-09-02] MEDS ORDERED: Fentanyl 250 MCG/5 ML VIAL ONE ×3 (09:05→12:04)
[2022-09-02] MEDS ORDERED: SUGAMMADEX SODIUM 200 MG/2 ML VIAL ONE (09:11)
[2022-09-02] MEDS ORDERED: Dexmedetomidine 200 MCG/2 ML VIAL ONE (09:11)
[2022-09-02] MEDS ORDERED: NEOSTIGMINE 3 MG/3 ML SYR 3 MG/3 ML SYRINGE ONE (09:26)
[2022-09-02] MEDS ORDERED: PHENYLEPHRINE-NS 100 MCG/ML 10 ML SYRINGE ONE (09:26)
[2022-09-02] MEDS ORDERED: Ondansetron PF 4 MG/2 ML Vial ONE (09:26)
[2022-09-02] MEDS ORDERED: Dexamethasone 20 MG/5 ML VIAL ONE (09:26)
[2022-09-02] MEDS ORDERED: Rocuronium Bromide 10 MG/ML (10ML VIAL) ONE (09:26)
[2022-09-02] MEDS ORDERED: ePHEDrine 50 MG/ML VIAL ONE (09:26)
[2022-09-02] MEDS ORDERED: PROPOFOL 200 MG/20 ML VIAL ONE (09:26)
[2022-09-02] MEDS ORDERED: Glycopyrrolate 0.2 MG/ML 5 ML SYRINGE ONE (09:26)
[2022-09-02] MEDS ORDERED: Lidocaine 1% PF 5 ML VIAL ONE (09:26)
[2022-09-02] MEDS ORDERED: Promethazine HCl 25 MG/ML VIAL IVPB PRN (11:12)
[2022-09-02] MEDS ORDERED: Promethazine HCl 25 MG/ML VIAL IM PRN ×2 (11:12→12:30)
[2022-09-02] MEDS ORDERED: Ondansetron HCl/PF 4 MG/2 ML Vial IVP PRN (11:12)
[2022-09-02] MEDS ORDERED: Promethazine HCl 25 MG/ML VIAL ONE (11:56)
[2022-09-02] MEDS ORDERED: HYDROmorphone 0.5 MG/0.5 ML SYRINGE ONE ×3 (12:28→13:59)
[2022-09-02] MEDS ORDERED: diphenhydrAMINE 25 MG CAP PO PRN (12:30)
[2022-09-02] MEDS ORDERED: Ondansetron PF 4 MG/2 ML Vial IVP PRN (12:30)
[2022-09-02] MEDS ORDERED: diphenhydrAMINE 50 MG/ML VIAL IM PRN (12:30)
[2022-09-02] MEDS ORDERED: Zolpidem Tartrate 5 MG TAB PO PRN (12:30)
[2022-09-02] MEDS ORDERED: Naloxone HCl 0.4 mg/ml Vial IV PRN (12:30)
[2022-09-02] MEDS ORDERED: Communication Order-Pharmacy FS SCH (12:30)
[2022-09-02] MEDS ORDERED: FENTANYL 500 MCG/10 ML VIAL 2,000 MCG in Sodium Chloride 0.9% 60 ML IV PRN (12:30)
[2022-09-02] MEDS ORDERED: D5 1/2 NS w/20 mEq KCL 1,000 ML ONE (12:32)
[2022-09-02] MEDS ORDERED: hydrALAZINE 20 MG/ML VIAL SLOW IVP PRN (12:44)
[2022-09-02] MEDS: cefOXitin 2 GM in Sodium Chloride 0.9% 100 ML IVPB SCH (17:53)
[2022-09-02] MEDS: Famotidine/PF 20 mg/2ml Vial SLOW IVP SCH (21:11)
[2022-09-02] MEDS: D5 1/2 NS w/20 mEq KCL 1,000 ML IV SCH ×2 (21:12)
[2022-09-02] MEDS: Famotidine 20 MG TAB PO SCH (21:12)
[2022-09-03] MEDS: cefOXitin 2 GM in Sodium Chloride 0.9% 100 ML IVPB SCH (00:56)
[2022-09-03] MEDS: Levothyroxine Sodium 50 MCG TAB PO SCH (05:23)
[2022-09-03] MEDS: D5 1/2 NS w/20 mEq KCL 1,000 ML IV SCH ×3 (05:24→21:05)
[2022-09-03 06:43] LABS: #Lymphocytes 1.2 thou/uL (1.20-3.40); #Monocytes 1.9 thou/uL (0.11-0.59); #Neutrophils 13.3 thou/uL (1.40-6.50); %Lymphocytes 7.3 % (21.0-51.0); %Monocytes 11.4 % (0.0-10.0); %Neutrophils 81.2 % (42.0-75.0); Hemoglobin 11.3 g/dL (12.0-16.0); Mean Corpuscular HGB CONC 31.5 g/dL (32.0-36.0); Mean Corpuscular Hemoglobin 29.8 pg (27.0-31.0); Mean Corpuscular Volume 94.4 fl (78.0-98.0); Mean Platelet Volume 8.6 fL (7.4-10.4); Platelet Count 255 10x3/uL (130-400); RBC Distribution Width 14.8 % (11.5-14.5); White Blood Cell (WBC) Count 16.4 10x3/uL (4.8-10.8)
[2022-09-03 07:08] LABS: Anion Gap 13 mmol/L (10-20); BUN (Urea Nitrogen) 16 mg/dL (9.8-20.1); Calc. Creatinine Clearance 84 mL/min (70-130); Calcium 9.2 mg/dL (7.8-10.44); Carbon Dioxide 24 mmol/L (23-31); Chloride 103 mmol/L (98-107); Estimated GFR 66; Glucose 140 mg/dL (80-115); Potassium 4.5 mmol/L (3.5-5.1); Sodium 135 mmol/L (136-145)
[2022-09-03] MEDS: Enoxaparin Sodium 40 MG/0.4 ML SYRINGE SC SCH (08:27)
[2022-09-03] MEDS: Valsartan 80 MG TAB PO SCH (08:28)
[2022-09-03] MEDS: Famotidine 20 MG TAB PO SCH (08:28)
[2022-09-03] MEDS: Hydrochlorothiazide 25 MG TAB PO SCH (08:28)
[2022-09-03] MEDS: Famotidine/PF 20 mg/2ml Vial SLOW IVP SCH (08:31)
[2022-09-03] MEDS: FENTANYL 500 MCG/10 ML VIAL 2,000 MCG in Sodium Chloride 0.9% 60 ML IV PRN (17:08)
[2022-09-03] MEDS ORDERED: Mag-Al 1200 mg/1200 mg/30 ML UDCUP PO PRN (17:23)
[2022-09-03] MEDS: Ondansetron PF 4 MG/2 ML Vial IVP PRN (18:00)
[2022-09-04] MEDS: Ondansetron PF 4 MG/2 ML Vial IVP PRN ×2 (00:01→19:10)
[2022-09-04] MEDS: Levothyroxine Sodium 50 MCG TAB PO SCH (05:01)
[2022-09-04] MEDS: Valsartan 80 MG TAB PO SCH (08:47)
[2022-09-04] MEDS: Enoxaparin Sodium 40 MG/0.4 ML SYRINGE SC SCH (08:48)
[2022-09-04] MEDS: Hydrochlorothiazide 25 MG TAB PO SCH (08:48)
[2022-09-04] MEDS: D5 1/2 NS w/20 mEq KCL 1,000 ML IV SCH (10:07)
[2022-09-04] MEDS ORDERED: Acetaminophen 325 MG TAB PO PRN (15:50)
[2022-09-04] MEDS: FENTANYL 500 MCG/10 ML VIAL 2,000 MCG in Sodium Chloride 0.9% 60 ML IV PRN (18:01)
[2022-09-05] MEDS: Ondansetron PF 4 MG/2 ML Vial IVP PRN ×3 (02:56→18:05)
[2022-09-05] MEDS: Levothyroxine Sodium 50 MCG TAB PO SCH (05:42)
[2022-09-05] MEDS: Valsartan 80 MG TAB PO SCH (09:00)
[2022-09-05] MEDS: Enoxaparin Sodium 40 MG/0.4 ML SYRINGE SC SCH (09:00)
[2022-09-05] MEDS: Hydrochlorothiazide 25 MG TAB PO SCH (09:03)
[2022-09-05] MEDS: D5 1/2 NS w/20 mEq KCL 1,000 ML IV SCH ×2 (09:28)
[2022-09-05] MEDS: FENTANYL 500 MCG/10 ML VIAL 2,000 MCG in Sodium Chloride 0.9% 60 ML IV PRN (14:19)
[2022-09-05] MEDS: diphenhydrAMINE 50 MG/ML VIAL IVP PRN (22:45)
[2022-09-06] MEDS: D5 1/2 NS w/20 mEq KCL 1,000 ML IV SCH ×3 (00:45→20:38)
[2022-09-06] MEDS: diphenhydrAMINE 50 MG/ML VIAL IVP PRN ×3 (03:02→23:18)
[2022-09-06] MEDS: Levothyroxine Sodium 50 MCG TAB PO SCH (05:50)
[2022-09-06 06:14] LABS: #Eosinphils 0.2 thou/uL (0.0-0.7); #Lymphocytes 1.3 thou/uL (1.20-3.40); #Monocytes 0.9 thou/uL (0.11-0.59); #Neutrophils 4.7 thou/uL (1.40-6.50); %Basophils 0.4 % (0.0-1.0); %Eosinophils 2.5 % (0.0-10.0); %Lymphocytes 18.7 % (21.0-51.0); %Monocytes 12.7 % (0.0-10.0); %Neutrophils 65.8 % (42.0-75.0); Hemoglobin 9.2 g/dL (12.0-16.0); Mean Corpuscular HGB CONC 32.1 g/dL (32.0-36.0); Mean Corpuscular Hemoglobin 30.2 pg (27.0-31.0); Mean Corpuscular Volume 94.3 fl (78.0-98.0); Mean Platelet Volume 9.3 fL (7.4-10.4); Platelet Count 244 10x3/uL (130-400); RBC Distribution Width 14.8 % (11.5-14.5); Red Blood Cell (RBC) Count 3.06 mill/uL (4.20-5.40); White Blood Cell (WBC) Count 7.1 10x3/uL (4.8-10.8)
[2022-09-06 06:37] LABS: ALT (SGPT) 23 U/L (8-55); AST (SGOT) 19 U/L (5-34); Albumin 3.3 g/dL (3.4-4.8); Alkaline Phosphatase 88 U/L (40-110); BUN (Urea Nitrogen) 9 mg/dL (9.8-20.1); Bilirubin, Total 0.6 mg/dL (0.2-1.2); Calc. Creatinine Clearance 79 mL/min (70-130); Calcium 9.4 mg/dL (7.8-10.44); Carbon Dioxide 17 mmol/L (23-31); Chloride 107 mmol/L (98-107); Estimated GFR 62; Globulin 3.1 g/dL (2.4-3.5); Glucose 83 mg/dL (80-115); Magnesium 1.7 mg/dL (1.6-2.6); Phosphorus 4.2 mg/dL (2.3-4.7); Potassium 4.7 mmol/L (3.5-5.1); Protein, Total 6.4 g/dL (5.8-8.1); Sodium 136 mmol/L (136-145)
[2022-09-06 07:02] LABS: Anion Gap 17 mmol/L (10-20)
[2022-09-06] MEDS: Ondansetron PF 4 MG/2 ML Vial IVP PRN ×3 (07:24→20:38)
[2022-09-06] MEDS: FENTANYL 500 MCG/10 ML VIAL 2,000 MCG in Sodium Chloride 0.9% 60 ML IV PRN ×2 (08:36→20:59)
[2022-09-06] MEDS: Enoxaparin Sodium 40 MG/0.4 ML SYRINGE SC SCH (08:37)
[2022-09-06] MEDS: Valsartan 80 MG TAB PO SCH (08:37)
[2022-09-06] MEDS: Hydrochlorothiazide 25 MG TAB PO SCH (08:38)
[2022-09-06] MEDS ORDERED: Iopamidol-370 76% 500 ML 1 ML ONE (11:03)
[2022-09-07] MEDS: Levothyroxine Sodium 50 MCG TAB PO SCH (06:38)
[2022-09-07] MEDS: Hydrochlorothiazide 25 MG TAB PO SCH (08:42)
[2022-09-07] MEDS: Valsartan 80 MG TAB PO SCH (08:42)
[2022-09-07] MEDS: Ondansetron PF 4 MG/2 ML Vial IVP PRN ×2 (08:42→17:53)
[2022-09-07] MEDS: Enoxaparin Sodium 40 MG/0.4 ML SYRINGE SC SCH (08:42)
[2022-09-07] MEDS ORDERED: Fentanyl 100 MCG/2 ML VIAL SLOW IVP PRN (11:24)
[2022-09-07] MEDS: HYDROcodone/Acetaminophen 7.5/325 mg Tablet PO PRN ×2 (14:41→20:21)
[2022-09-07] MEDS: D5 1/2 NS w/20 mEq KCL 1,000 ML IV SCH (20:21)
[2022-09-08] MEDS: HYDROcodone/Acetaminophen 7.5/325 mg Tablet PO PRN ×4 (02:19→20:36)
[2022-09-08] MEDS: Levothyroxine Sodium 50 MCG TAB PO SCH (05:47)
[2022-09-08] MEDS: Enoxaparin Sodium 40 MG/0.4 ML SYRINGE SC SCH (08:56)
[2022-09-08] MEDS: Valsartan 80 MG TAB PO SCH (08:57)
[2022-09-08] MEDS: Hydrochlorothiazide 25 MG TAB PO SCH (08:57)
[2022-09-08] MEDS: Ondansetron PF 4 MG/2 ML Vial IVP PRN (17:51)
[2022-09-09] MEDS: HYDROcodone/Acetaminophen 7.5/325 mg Tablet PO PRN ×4 (02:08→22:06)
[2022-09-09] MEDS: Levothyroxine Sodium 50 MCG TAB PO SCH (06:06)
[2022-09-09] MEDS: Enoxaparin Sodium 40 MG/0.4 ML SYRINGE SC SCH (08:50)
[2022-09-09] MEDS: Hydrochlorothiazide 25 MG TAB PO SCH (08:50)
[2022-09-09] MEDS: Valsartan 80 MG TAB PO SCH (08:50)
[2022-09-09] MEDS: Promethazine HCl 25 MG/ML VIAL IM PRN ×2 (11:50→20:26)
[2022-09-09] MEDS ORDERED: Polyethylene Glycol 3350 17 GM Packet PO SCH (16:15)
[2022-09-10] MEDS: HYDROcodone/Acetaminophen 7.5/325 mg Tablet PO PRN ×2 (05:26→11:04)
[2022-09-10] MEDS: Levothyroxine Sodium 50 MCG TAB PO SCH (05:27)
[2022-09-10] MEDS ORDERED: Polyethylene Glycol 3350 17 GM Packet PO SCH (09:00)
[2022-09-10] MEDS: Valsartan 80 MG TAB PO SCH (09:51)
[2022-09-10] MEDS: Hydrochlorothiazide 25 MG TAB PO SCH (09:52)
[2022-09-10] MEDS: Enoxaparin Sodium 40 MG/0.4 ML SYRINGE SC SCH (09:52)
[2022-09-10 12:39] VITALS: BP 144/77; TEMP 97.5
== END 2022-09-10 13:45 | disposition home or self-care (01) | DRG 330 ==
LOC: SURG A 09-02 06:08 → SJJU 09-02 16:07
PROVIDERS: ADMIT Surgery; ATTEND Surgery
PROC: 0DBN0ZZ Excision of Sigmoid Colon, Open Approach (ICD-10-PCS; principal; 2022-09-02)
PROC: 3E0T3BZ Introduction of Anesthetic Agent into Peripheral Nerves and Plexi, Percutaneous Approach (ICD-10-PCS; 2022-09-02)
DX: Z43.3 Encounter for attention to colostomy (principal); K57.32 Diverticulitis of large intestine without perforation or abscess without bleeding; I25.10 Atherosclerotic heart disease of native coronary artery without angina pectoris; Z20.822 Contact with and (suspected) exposure to COVID-19; I10 Essential (primary) hypertension; E78.5 Hyperlipidemia, unspecified; M32.9 Systemic lupus erythematosus, unspecified; F41.0 Panic disorder [episodic paroxysmal anxiety]; F17.210 Nicotine dependence, cigarettes, uncomplicated; E03.9 Hypothyroidism, unspecified; E66.9 Obesity, unspecified; G47.33 Obstructive sleep apnea (adult) (pediatric); Z68.32 Body mass index [BMI] 32.0-32.9, adult; Z86.16 Personal history of COVID-19; Z79.899 Other long term (current) drug therapy; Z90.710 Acquired absence of both cervix and uterus; Z90.49 Acquired absence of other specified parts of digestive tract; Z79.890 Hormone replacement therapy; Z88.8 Allergy status to other drugs, medicaments and biological substances; Z82.49 Family history of ischemic heart disease and other diseases of the circulatory system; Z82.0 Family history of epilepsy and other diseases of the nervous system
CPT/HCPCS: 36415; 74177; 80048; 80053; 83735; 84100; 85025; 87811; 88307; C1776; J0171; J0694; J1100; J1170; J1200; J1650; J2001; J2250; J2405; J2550; J2704; J3010; J3480; J3490; Q9967; S0020; S0028; U0002

== ENCOUNTER 2022-12-21 14:27 | Outpatient (CLI) | payer BC | END 2022-12-21 14:28 | disposition home or self-care (01) | LOC: TBSIIMAG 14:27 | PROVIDERS: ATTEND Surgery | DX: M54.16 Radiculopathy, lumbar region (principal); M47.816 Spondylosis without myelopathy or radiculopathy, lumbar region; R93.7 Abnormal findings on diagnostic imaging of other parts of musculoskeletal system; Z98.890 Other specified postprocedural states; M51.26 Other intervertebral disc displacement, lumbar region; M43.16 Spondylolisthesis, lumbar region; M48.061 Spinal stenosis, lumbar region without neurogenic claudication | CPT/HCPCS: 72100; 72158 ==

== ENCOUNTER 2023-01-09 08:47 | Inpatient (IN) | payer BC ==
[~2023-01-09 08:47] MED LIST changes: -Iopamidol 370 76% 100 ML VIAL ONE; +Iopamidol-370 76% 500 ML MDV (1 ML CHARGE) ONE
[2023-01-09 09:39] LABS: Hemoglobin 12.5 g/dL (12.0-16.0); Mean Corpuscular HGB CONC 32.8 g/dL (32.0-36.0); Mean Corpuscular Hemoglobin 29.8 pg (27.0-31.0); Mean Corpuscular Volume 90.8 fl (78.0-98.0); Mean Platelet Volume 8.7 fL (7.4-10.4); Platelet Count 214 10x3/uL (130-400); RBC Distribution Width 13.2 % (11.5-14.5); Red Blood Cell (RBC) Count 4.21 mill/uL (4.20-5.40); White Blood Cell (WBC) Count 18.2 10x3/uL (4.8-10.8)
[2023-01-09 09:57] LABS: ALT (SGPT) 13 U/L (8-55); AST (SGOT) 12 U/L (5-34); Albumin 3.9 g/dL (3.4-4.8); Alkaline Phosphatase 118 U/L (40-110); Anion Gap 18 mmol/L (10-20); BUN (Urea Nitrogen) 30 mg/dL (9.8-20.1); Bilirubin, Total 0.9 mg/dL (0.2-1.2); Calc. Creatinine Clearance 0 mL/min (70-130); Calcium 9.1 mg/dL (7.8-10.44); Carbon Dioxide 21 mmol/L (23-31); Chloride 99 mmol/L (98-107); Estimated GFR 29; Globulin 3.1 g/dL (2.4-3.5); Glucose 108 mg/dL (80-115); Potassium 3.8 mmol/L (3.5-5.1); Sodium 134 mmol/L (136-145)
[2023-01-09 10:12] LABS: Band 12 % (5-11); Lymphocytes 2 % (21-51); MDiff Complete? YES; Monocytes 7 % (0-10); Neutrophil 78 % (42-75); Platelet Morphology Comment Appears Adequate; RBC Morphology Within Normal Limits; Reactive Lymphocytes 1 % (0-10)
[2023-01-09] MEDS ORDERED: cefTRIAXone (ROCEPHIN) 2 GM VIAL ONE (10:33)
[2023-01-09 11:17] LABS: Bilirubin Negative (Negative); Blood, Urine 2+ (Negative); Glucose, Urine (Dipstick) Normal (Negative); Ketone, Urine Negative (Negative); Leukocyte 500 Leu/uL (Negative); Nitrite Negative (Negative); Protein, Urine (Dipstick) 70 mg/dL (Neg-Trace); Specific Gravity, Urine 1.026 (1.002-1.036); pH, Urine 5.5 (5.0-9.0)
[2023-01-09 11:18] LABS: Bacteria/HPF 2+ HPF (None Seen); Clarity Turbid (Clear); Squamous Epithelial 21-50 HPF (0-3); WBC/HPF Greater than 50 HPF (0-3)
[2023-01-09] MEDS ORDERED: Acetaminophen 500 MG TAB ONE (13:17)
[2023-01-09] MEDS ORDERED: Bisacodyl 10 MG SUPP PR PRN (13:31)
[2023-01-09] MEDS ORDERED: Ondansetron ODT 4 MG TAB PO PRN (13:31)
[2023-01-09] MEDS ORDERED: Senokot S 8.6-50 MG TAB PO PRN (13:31)
[2023-01-09] MEDS ORDERED: Calcium Carbonate 500 MG ChewTAB PO PRN (13:31)
[2023-01-09] MEDS ORDERED: hydrALAZINE 25 MG TAB PO PRN (13:35)
[2023-01-09 14:03] LABS: SARS-CoV-2 NAA Rapid Test Not Detected (NotDetected)
[2023-01-09 14:38] VITALS: BMI 31.6
[2023-01-09] MEDS: Sodium Chloride 0.9% 1,000 ML IV SCH ×2 (15:03→20:20)
[2023-01-09] MEDS: Saccharomyces boulardii 250 MG CAP PO SCH (15:08)
[2023-01-09] MEDS: Methocarbamol 500 MG TAB PO PRN (18:50)
[2023-01-09] MEDS: Famotidine 20 MG TAB PO SCH (20:20)
[2023-01-09] MEDS: Acetaminophen 325 MG TAB PO PRN (20:27)
[2023-01-09] MEDS: HYDROcodone/Acetaminophen 7.5/325 mg Tablet PO PRN (23:16)
[2023-01-09] MEDS ORDERED: Acetaminophen 325 MG TAB PO SCH (23:45)
[2023-01-10] MEDS: traMADol HCl 50 MG TAB PO PRN ×2 (01:18→17:09)
[2023-01-10] MEDS: Sodium Chloride 0.9% 1,000 ML IV SCH ×4 (04:35→20:18)
[2023-01-10] MEDS: Levothyroxine Sodium 50 MCG TAB PO SCH (05:07)
[2023-01-10] MEDS ORDERED: Levothyroxine Sodium 50 MCG TAB PO SCH (06:00)
[2023-01-10 06:41] LABS: #Lymphocytes 0.4 thou/uL (1.20-3.40); #Monocytes 0.4 thou/uL (0.11-0.59); #Neutrophils 5.6 thou/uL (1.40-6.50); %Basophils 0.3 % (0.0-1.0); %Eosinophils 0.2 % (0.0-10.0); %Lymphocytes 6.3 % (21.0-51.0); %Monocytes 5.6 % (0.0-10.0); %Neutrophils 87.6 % (42.0-75.0); Hemoglobin 9.9 g/dL (12.0-16.0); Mean Corpuscular HGB CONC 31.4 g/dL (32.0-36.0); Mean Corpuscular Hemoglobin 29.6 pg (27.0-31.0); Mean Corpuscular Volume 94.5 fl (78.0-98.0); Mean Platelet Volume 9.5 fL (7.4-10.4); Platelet Count 133 10x3/uL (130-400); RBC Distribution Width 13.4 % (11.5-14.5); Red Blood Cell (RBC) Count 3.33 mill/uL (4.20-5.40); White Blood Cell (WBC) Count 6.4 10x3/uL (4.8-10.8)
[2023-01-10 06:49] LABS: Anion Gap 13 mmol/L (10-20); BUN (Urea Nitrogen) 25 mg/dL (9.8-20.1); Calc. Creatinine Clearance 60 mL/min (70-130); Calcium 8.2 mg/dL (7.8-10.44); Carbon Dioxide 17 mmol/L (23-31); Chloride 108 mmol/L (98-107); Estimated GFR 47; Glucose 106 mg/dL (80-115); Magnesium 2.1 mg/dL (1.6-2.6); Potassium 3.6 mmol/L (3.5-5.1); Sodium 134 mmol/L (136-145)
[2023-01-10] MEDS ORDERED: Polyethylene Glycol 3350 17 GM Packet PO PRN (08:25)
[2023-01-10] MEDS: cefTRIAXone\\ROCEPHIN 2 GM in Sodium Chloride 0.9% 100 ML IVPB SCH (08:27)
[2023-01-10] MEDS: Famotidine 20 MG TAB PO SCH ×2 (08:27→20:17)
[2023-01-10] MEDS ORDERED: Valsartan 80 MG TAB PO SCH (09:00)
[2023-01-10] MEDS: Acetaminophen 325 MG TAB PO PRN ×2 (10:22→22:53)
[2023-01-10] MEDS: Ondansetron PF 4 MG/2 ML Vial IVP PRN ×2 (11:15→17:08)
[2023-01-10] MEDS: HYDROcodone/Acetaminophen 7.5/325 mg Tablet PO PRN ×2 (12:53→22:54)
[2023-01-10] MEDS: Saccharomyces boulardii 250 MG CAP PO SCH (12:54)
[2023-01-10] MEDS: Atorvastatin Calcium 20 MG TAB PO SCH (20:16)
[2023-01-11] MEDS: traMADol HCl 50 MG TAB PO PRN (05:07)
[2023-01-11] MEDS: Levothyroxine Sodium 50 MCG TAB PO SCH (05:08)
[2023-01-11] MEDS: Sodium Chloride 0.9% 1,000 ML IV SCH ×2 (05:08→16:21)
[2023-01-11 05:58] LABS: Hemoglobin 9.3 g/dL (12.0-16.0); Mean Corpuscular HGB CONC 30.3 g/dL (32.0-36.0); Mean Corpuscular Hemoglobin 28.1 pg (27.0-31.0); Mean Corpuscular Volume 92.7 fl (78.0-98.0); Mean Platelet Volume 11.4 fL (7.4-10.4); Platelet Count 147 10x3/uL (130-400); RBC Distribution Width 14.4 % (11.5-14.5); Red Blood Cell (RBC) Count 3.31 mill/uL (4.20-5.40); White Blood Cell (WBC) Count 4.4 10x3/uL (4.8-10.8)
[2023-01-11 06:24] LABS: BUN (Urea Nitrogen) 16 mg/dL (9.8-20.1); Calc. Creatinine Clearance 66 mL/min (70-130); Calcium 8.3 mg/dL (7.8-10.44); Carbon Dioxide 21 mmol/L (23-31); Chloride 107 mmol/L (98-107); Estimated GFR 53; Glucose 99 mg/dL (80-115); Potassium 3.4 mmol/L (3.5-5.1); Sodium 135 mmol/L (136-145)
[2023-01-11 06:25] LABS: Anion Gap 10 mmol/L (10-20)
[2023-01-11] MEDS ORDERED: Potassium Chloride 20 MEQ TAB PO SCH (08:15)
[2023-01-11] MEDS: cefTRIAXone\\ROCEPHIN 2 GM in Sodium Chloride 0.9% 100 ML IVPB SCH (08:40)
[2023-01-11] MEDS: Famotidine 20 MG TAB PO SCH ×2 (08:40→20:37)
[2023-01-11] MEDS: Ondansetron PF 4 MG/2 ML Vial IVP PRN (08:43)
[2023-01-11] MEDS: Acetaminophen 325 MG TAB PO PRN (14:10)
[2023-01-11] MEDS: HYDROcodone/Acetaminophen 7.5/325 mg Tablet PO PRN (14:11)
[2023-01-11] MEDS: Saccharomyces boulardii 250 MG CAP PO SCH (14:13)
[2023-01-11] MEDS ORDERED: Guaifenesin DM 100-10/5 ML UDCUP PO PRN (16:21)
[2023-01-11] MEDS ORDERED: Acetaminophen 500 MG TAB PO PRN (16:22)
[2023-01-11] MEDS ORDERED: Acetaminophen 500 MG TAB PO SCH (16:30)
[2023-01-11] MEDS: Lidocaine 4% Patch TD SCH (17:08)
[2023-01-11] MEDS: Atorvastatin Calcium 20 MG TAB PO SCH (20:37)
[2023-01-12] MEDS: Acetaminophen 325 MG TAB PO PRN ×2 (02:45→18:00)
[2023-01-12] MEDS: Sodium Chloride 0.9% 1,000 ML IV SCH (04:56)
[2023-01-12] MEDS: Transdermal Patch Removal TOP SCH (06:30)
[2023-01-12] MEDS: Levothyroxine Sodium 50 MCG TAB PO SCH (06:30)
[2023-01-12] MEDS: cefTRIAXone\\ROCEPHIN 2 GM in Sodium Chloride 0.9% 100 ML IVPB SCH (09:11)
[2023-01-12] MEDS: HYDROcodone/Acetaminophen 7.5/325 mg Tablet PO PRN (09:17)
[2023-01-12] MEDS: Famotidine 20 MG TAB PO SCH ×2 (09:17→21:31)
[2023-01-12] MEDS ORDERED: Sodium Chloride 0.9% 1,000 ML IV SCH (09:37)
[2023-01-12] MEDS ORDERED: traMADol HCl 50 MG TAB PO PRN ×2 (09:39→09:41)
[2023-01-12] MEDS ORDERED: Valsartan 80 MG TAB PO SCH (09:45)
[2023-01-12] MEDS: Saccharomyces boulardii 250 MG CAP PO SCH (14:39)
[2023-01-12] MEDS: Lidocaine 4% Patch TD SCH (17:45)
[2023-01-12] MEDS: Atorvastatin Calcium 20 MG TAB PO SCH (21:31)
[2023-01-13] MEDS: HYDROcodone/Acetaminophen 7.5/325 mg Tablet PO PRN ×2 (04:28→20:54)
[2023-01-13] MEDS: Levothyroxine Sodium 50 MCG TAB PO SCH (05:24)
[2023-01-13] MEDS: Methocarbamol 500 MG TAB PO PRN ×2 (05:25→18:34)
[2023-01-13] MEDS: Transdermal Patch Removal TOP SCH (05:25)
[2023-01-13] MEDS: Valsartan 80 MG TAB PO SCH (09:13)
[2023-01-13] MEDS: Famotidine 20 MG TAB PO SCH ×2 (09:13→20:51)
[2023-01-13] MEDS: cefTRIAXone\\ROCEPHIN 2 GM in Sodium Chloride 0.9% 100 ML IVPB SCH (09:14)
[2023-01-13] MEDS ORDERED: Furosemide 20 MG TAB PO SCH (10:30)
[2023-01-13] MEDS ORDERED: Furosemide 40 MG TAB PO SCH (10:45)
[2023-01-13] MEDS ORDERED: Electrolyte Replacement Protocol 1 EACH FS SCH (10:45)
[2023-01-13 10:58] LABS: #Eosinphils 0.1 thou/uL (0.0-0.7); #Monocytes 0.9 thou/uL (0.11-0.59); #Neutrophils 4.6 thou/uL (1.40-6.50); %Basophils 0.4 % (0.0-1.0); %Eosinophils 1.3 % (0.0-10.0); %Lymphocytes 16.4 % (21.0-51.0); %Monocytes 13.6 % (0.0-10.0); %Neutrophils 67.1 % (42.0-75.0); Hemoglobin 9.9 g/dL (12.0-16.0); Mean Corpuscular Hemoglobin 28.4 pg (27.0-31.0); Mean Corpuscular Volume 91.4 fl (78.0-98.0); Mean Platelet Volume 11.2 fL (7.4-10.4); Platelet Count 184 10x3/uL (130-400); RBC Distribution Width 14.6 % (11.5-14.5); Red Blood Cell (RBC) Count 3.49 mill/uL (4.20-5.40); White Blood Cell (WBC) Count 6.8 10x3/uL (4.8-10.8)
[2023-01-13 11:19] LABS: Anion Gap 14 mmol/L (10-20); BUN (Urea Nitrogen) 12 mg/dL (9.8-20.1); Calc. Creatinine Clearance 76 mL/min (70-130); Calcium 8.7 mg/dL (7.8-10.44); Carbon Dioxide 22 mmol/L (23-31); Chloride 109 mmol/L (98-107); Estimated GFR 63; Glucose 87 mg/dL (80-115); Magnesium 1.7 mg/dL (1.6-2.6); Potassium 3.7 mmol/L (3.5-5.1); Sodium 141 mmol/L (136-145)
[2023-01-13] MEDS ORDERED: Electrolyte Replacement Protocol FS PRN (11:30)
[2023-01-13] MEDS ORDERED: Magnesium 2 GM/50 ML(in water) 2 GM in Premix Bag 1 BAG IVPB SCH (12:00)
[2023-01-13] MEDS: Lidocaine 4% Patch TD SCH (18:34)
[2023-01-13] MEDS: Saccharomyces boulardii 250 MG CAP PO SCH (18:34)
[2023-01-13] MEDS: Atorvastatin Calcium 20 MG TAB PO SCH (20:51)
[2023-01-14] MEDS: Levothyroxine Sodium 50 MCG TAB PO SCH (05:59)
[2023-01-14] MEDS: Transdermal Patch Removal TOP SCH (06:01)
[2023-01-14 07:48] VITALS: BP 161/74; TEMP 98.2
[2023-01-14] MEDS: cefTRIAXone\\ROCEPHIN 2 GM in Sodium Chloride 0.9% 100 ML IVPB SCH (09:35)
[2023-01-14] MEDS: Valsartan 80 MG TAB PO SCH (09:40)
[2023-01-14] MEDS: Famotidine 20 MG TAB PO SCH (09:40)
[2023-01-14] MEDS ORDERED: Valsartan 80 MG TAB PO SCH (11:45)
== END 2023-01-14 15:43 | disposition home or self-care (01) | DRG 872 ==
LOC: ERS 08:47 → T4-A 11:57
PROVIDERS: ADMIT Internal Medicine; ATTEND Internal Medicine
DX: A41.51 Sepsis due to Escherichia coli [E. coli] (principal); N10 Acute pyelonephritis; E87.1 Hypo-osmolality and hyponatremia; J98.11 Atelectasis; E87.20 Acidosis, unspecified; N17.9 Acute kidney failure, unspecified; N39.0 Urinary tract infection, site not specified; E03.9 Hypothyroidism, unspecified; E78.5 Hyperlipidemia, unspecified; E78.00 Pure hypercholesterolemia, unspecified; K21.9 Gastro-esophageal reflux disease without esophagitis; G89.4 Chronic pain syndrome; I45.10 Unspecified right bundle-branch block; Z96.641 Presence of right artificial hip joint; N18.2 Chronic kidney disease, stage 2 (mild); E86.0 Dehydration; D63.1 Anemia in chronic kidney disease; I12.9 Hypertensive chronic kidney disease with stage 1 through stage 4 chronic kidney disease, or unspecified chronic kidney disease; E87.6 Hypokalemia; E83.42 Hypomagnesemia; E66.9 Obesity, unspecified; D53.9 Nutritional anemia, unspecified; Z20.822 Contact with and (suspected) exposure to COVID-19; Z90.710 Acquired absence of both cervix and uterus; Z98.890 Other specified postprocedural states; Z79.899 Other long term (current) drug therapy; Z68.31 Body mass index [BMI] 31.0-31.9, adult
CPT/HCPCS: 36415; 36416; 71045; 74177; 80048; 80053; 81003; 81015; 83605; 83735; 84484; 85025; 85027; 87040; 87077; 87081; 87086; 87186; 87633; 93005; 93010; 93970; 96365; J0696; J1650; J2405; J3475; J3490; J7050; Q9967

== ENCOUNTER 2023-10-05 08:15 | Outpatient (CLI) | payer OTHER ==
[2023-10-05] MEDS ORDERED: Iopamidol 370 76% 100 ML VIAL ONE (09:36)
== END 2023-10-05 08:16 | disposition home or self-care (01) ==
LOC: BICCT 08:15
PROVIDERS: ATTEND Surgery
DX: K43.2 Incisional hernia without obstruction or gangrene (principal)
CPT/HCPCS: 74177; 82565

== ENCOUNTER 2023-10-26 14:55 | Outpatient (CLI) | payer OTHER, SELFPAY ==
[2023-10-26 15:56] LABS: #Basophils 0.1 10x3/uL (0.0-0.2); #Eosinphils 0.2 10x3/uL (0.0-0.5); #Monocytes 0.7 10x3/uL (0.0-1.1); #Neutrophils 5.6 10x3/uL (1.5-8.4); %Basophils 0.6 % (0.0-2.0); %Eosinophils 1.9 % (0.0-6.0); %Lymphocytes 19.7 % (18.0-47.0); %Monocytes 8.9 % (0.0-10.0); %Neutrophils 68.4 % (40.0-75.0); Hematocrit 39.5 % (34.9-44.5); Mean Corpuscular HGB CONC 32.9 g/dL (32.0-36.0); Mean Platelet Volume 10.5 fl (7.4-10.4); Platelet Count 280 10x3/uL (150-450); RBC Distribution Width 13.5 % (11.5-14.5); Red Blood Cell (RBC) Count 4.49 10x6/uL (3.90-5.03); White Blood Cell (WBC) Count 8.2 10x3/uL (3.5-10.5)
[2023-10-26 16:03] LABS: Anion Gap 13 mmol/L (10-20); BUN (Urea Nitrogen) 29 mg/dL (9.8-20.1); Calc. Creatinine Clearance 0 mL/min (70-130); Calcium 9.6 mg/dL (7.8-10.44); Carbon Dioxide 27 mmol/L (23-31); Chloride 105 mmol/L (98-107); Estimated GFR 55; Glucose 130 mg/dL (80-115); Potassium 3.7 mmol/L (3.5-5.1); Sodium 141 mmol/L (136-145)
== END 2023-10-26 14:56 | disposition home or self-care (01) ==
LOC: LABBT 14:55
PROVIDERS: ATTEND Surgery
DX: Z01.818 Encounter for other preprocedural examination (principal); K43.2 Incisional hernia without obstruction or gangrene
CPT/HCPCS: 80048; 85025; 93005; 93010